=== PATIENT | female | born 1965 | race Caucasian/White ===

== ENCOUNTER 2016-10-07 19:38 | Inpatient (IN) | payer MEDICAID, OTHER ==
[~2016-10-07] VITALS: Ht 165.1 cm; Wt 83.3 kg
[~2016-10-07 19:38] MED LIST: Z.0.NO CURRENT MEDS
[2016-10-07 20:02] VITALS: BP 112/65; PULSE 107; RESP 16; TEMP 98.2; O2SAT 93
--- NOTE | 2016-10-07 20:20 | PD ---
HPI Chief Complaint: Complaint Time Seen by Provider: 20:20 Travel History International Travel<30 days: No Contact w/Intl Traveler<30days: No Traveled to known affect area: No History of Present Illness HPI 51-year-old female with a history of COPD is brought to the emergency department by EMS for evaluation of weakness. The patient states that she got into an argument with her son who was asking her for money and he called EMS. States that she was feeling weak in her knees worse on the right than the left. Denies any falls, denies any head trauma or loss of consciousness. Denies any specific injury or trauma to her knees. States she has had problems with her knees for years. She denies any fever, chills, nausea, vomiting, lightheadedness, dizziness, headache, chest pain, shortness breath, abdominal pain, numbness or tingling. She admits to drinking alcohol daily to try to control her chronic back pain, states that she used to take Suboxone but does not take this anymore. She also admits to taking clonazepam for anxiety, states she took four 2 mg tablets of clonazepam today, 2 this morning and 2 this afternoon. She denies any suicidal ideations or thoughts of hurting herself. Denies any ingestion of pills or substances in an attempt to harm herself. No other complaints. PFSH Past Medical History Anxiety: Yes COPD: Yes Diminished Hearing: No Hypertension: Yes Medical other: Yes (PANIC ATTACKS) Respiratory: Yes (COPD) Seizures: Yes Tetanus Vaccination: > 5 Years Influenza Vaccination: No ?: Not Past Surgical History Section: Yes (X1) Gynecologic Surgery: Yes (TL) Hysterectomy: Yes (PARTIAL) Other Surgery: Yes (TUMOR REMOVED FROM BACK) Social History Alcohol Use: Yes (DAILY) Tobacco Use: Yes (1/2 PPD) Substance Use: No Allergies-Medications (Allergen,Severity, Reaction): Coded Allergies: No Known Allergies (Verified , 05/09/06) Reported Meds & Prescriptions Reported Meds & Active Scripts Active Reported No Current Meds (Miscellaneous Medication) Misc Review of Systems Except as stated in HPI: all other systems reviewed are Neg Physical Exam Narrative GENERAL: Well-nourished and well-developed female patient in no acute distress. SKIN: Warm and dry. HEAD: Normocephalic and atraumatic. EYES: No injection, drainage, or hyphema noted. PERRLA. EOMI. ENT: No nasal drainage noted. Oropharynx is clear. NECK: Supple and the trachea is midline. CARDIOVASCULAR: Regular rate and rhythm. RESPIRATORY: Breath sounds are equal bilaterally with no accessory muscle use, wheezing, rhonchi, or crackles. GASTROINTESTINAL: Abdomen is soft, non-tender, and nondistended. MUSCULOSKELETAL: No obvious deformities, swelling, cyanosis, or ecchymosis is present throughout the upper and lower extremities. Patient has full range of motion without any signs of neurovascular compromise. Strength 5/5 upper and lower extremities and equal bilaterally. NEUROLOGICAL: Awake, alert, and oriented. Drowsy but awake and conversing normally. Normal speech and gait. Cranial nerves are grossly intact. Data Data Last Documented VS Vital Signs Date Time Temp Pulse Resp B/P Pulse Ox O2 Delivery O2 Flow Rate FiO2 10/07/16 22:58 110 16 109/67 94 Nasal Cannula 2 10/07/16 21:15 98.1 Orders Alcohol (Ethanol) (10/07/16 20:11) Complete Blood Count With Diff (10/07/16 20:11) Comprehensive Metabolic Panel (10/07/16 20:11) Drug Screen, Random Urine (10/07/16 20:11) Urinalysis - C+S If Indicated (10/07/16 20:11) Ct Brain W/O Iv Contrast(Rout) (10/07/16 20:11) Sodium Chlor 0.9% 1000 Ml Inj (Ns 1000 M (10/07/16 20:26) Sodium Chlor 0.9% 1000 Ml Inj (Ns 1000 M (10/07/16 20:26) Electrocardiogram (10/07/16 ) Urine Culture (10/07/16 20:20) Ceftriaxone Inj (Rocephin Inj) (10/07/16 21:00) Arterial Blood Gas (Abg) (10/07/16 ) Naloxone Inj (Narcan Inj) (10/07/16 21:30) Sodium Chlor 0.9% 1000 Ml Inj (Ns 1000 M (10/07/16 21:22) Naloxone Inj (Narcan Inj) (10/07/16 21:45) Ammonia (10/07/16 22:03) Salicylates (Aspirin) (10/07/16 22:03) Tylenol (Acetaminophen) (10/07/16 22:03) Ondansetron Inj (Zofran Inj) (10/07/16 22:30) Labs Laboratory Tests Test 10/07/16 10/07/16 10/07/16 20:11 20:20 21:28 Urine Opiates Screen NEG Urine Barbiturates Screen NEG Urine Amphetamines Screen NEG Urine Benzodiazepines Screen POS Urine Cocaine Screen NEG Urine Cannabinoids Screen NEG White Blood Count 14.8 TH/MM3 Red Blood Count 3.95 MIL/MM3 Hemoglobin 11.8 GM/DL Hematocrit 34.7 % Mean Corpuscular Volume 87.9 FL Mean Corpuscular Hemoglobin 29.9 PG Mean Corpuscular Hemoglobin 34.0 % Concent Red Cell Distribution Width 14.5 % Platelet Count 231 TH/MM3 Mean Platelet Volume 9.9 FL Neutrophils (%) (Auto) 83.6 % Lymphocytes (%) (Auto) 9.2 % Monocytes (%) (Auto) 5.8 % Eosinophils (%) (Auto) 0.9 % Basophils (%) (Auto) 0.5 % Neutrophils # (Auto) 12.3 TH/MM3 Lymphocytes # (Auto) 1.4 TH/MM3 Monocytes # (Auto) 0.9 TH/MM3 Eosinophils # (Auto) 0.1 TH/MM3 Basophils # (Auto) 0.1 TH/MM3 CBC Comment DIFF FINAL Differential Comment Urine Color YELLOW Urine Turbidity HAZY Urine pH 6.0 Urine Specific [place] 1.027 Urine Protein 30 mg/dL Urine Glucose (UA) NEG mg/dL Urine Ketones NEG mg/dL Urine Occult Blood MOD Urine Nitrite POS Urine Bilirubin NEG Urine Urobilinogen LESS THAN 2.0 MG/DL Urine Leukocyte Esterase SMALL Urine RBC 2 /hpf Urine WBC 20 /hpf Urine Bacteria MOD /hpf Urine Hyaline Casts 1 /lpf Urine Mucus FEW /lpf Microscopic Urinalysis Comment CATH-CULTURE IND Sodium Level 141 MEQ/L Potassium Level 3.4 MEQ/L Chloride Level 108 MEQ/L Carbon Dioxide Level 23.3 MEQ/L Anion Gap 10 MEQ/L Blood Urea Nitrogen 23 MG/DL Creatinine 0.93 MG/DL Estimat Glomerular Filtration 63 ML/MIN Rate Random Glucose 106 MG/DL Calcium Level 8.7 MG/DL Total Bilirubin 0.6 MG/DL Aspartate Amino Transf 99 U/L (AST/SGOT) Alanine Aminotransferase 133 U/L (ALT/SGPT) Alkaline Phosphatase 123 U/L Total Protein 7.7 GM/DL Albumin 4.0 GM/DL Ethyl Alcohol Level LESS THAN 3 MG/DL Blood Gas Puncture Site RT RADIAL Blood Gas Patient Temperature 98.6 Blood Gas HCO3 21 mmol/L Blood Gas Base Excess -6.1 mmol/L Blood Gas Oxygen Saturation 80 % Arterial Blood pH 7.20 Arterial Blood Partial 55 mmHg Pressure CO2 Arterial Blood Partial 54 mmHg Pressure O2 Arterial Blood Oxygen Content 11.7 Vol % Arterial Blood 1.2 % Carboxyhemoglobin Arterial Blood Methemoglobin 1.1 % Blood Gas Hemoglobin 10.4 G/DL Oxygen Delivery Device RA Blood Gas Inspired Oxygen 21 % MDM Medical Decision Making Medical Screen Exam Complete: Yes Emergency Medical Condition: Yes Differential Diagnosis Substance abuse versus alcohol intoxication versus UTI versus dehydration versus mood disorder Narrative Course 51-year-old female presents to the emergency department by EMS for evaluation of weakness. Patient is afebrile, vital signs are stable. She is slightly tachycardic with a heart rate of 105 bpm. Physical examination is essentially unremarkable, no focal neurologic deficits. The patient is somewhat drowsy and admits to taking 4 tablets of clonazepam today. States that she took a shot of alcohol today. IV access is obtained, labs are drawn and sent. CBC shows an elevated white blood cell count of 14.8. CMP shows elevated LFTs, no recent for comparison are facility. Urine tox positive for benzos. EtOH is less than 3. Urinalysis shows 30 protein, moderate occult blood, positive nitrites, small leukocyte esterase, 20 white blood cells, moderate bacteria and few mucus. This consistent with urinary tract infection. Patient is given Rocephin 1 g IV. Patient is reassessed and noted to be more lethargic and difficult to arouse. She is able to be aroused by speaking loudly and shaking her but stays awake for only a few seconds. I suspect substance abuse. Patient is given Narcan 2 mg IV. Patient did respond to the Narcan and is more awake however is still drowsy. The patient does have an elevated white blood cell count, she is tachycardic and has a source of infection with her urine. She does meet sepsis criteria. She has been given Rocephin 1 g and 3 L of fluid. She'll be admitted to medicine service for antibiotics and fluids. I discussed the case with my attending physician Dr. Ricks who is aware of the patients history, physical examination findings, and treatment plan. Physician Communication Physician Communication I spoke with Dr. Puente Piter who agrees to admit the patient to her service. Diagnosis Primary Impression: Sepsis Qualified Code: A41.9 - Sepsis, due to unspecified organism Additional Impressions: Urinary tract infection Qualified Code: N39.0 - Urinary tract infection with hematuria, site unspecified Substance abuse Admitting Information Admitting Physician Requests: Admit Perlita Smith Oct 07, 2016 20:20
[2016-10-07] MEDS ORDERED: SODIUM CHLOR 0.9% 1000 ML INJ 1,000 ML IV SCH ×4 (20:26→23:27)
--- NOTE | 2016-10-07 20:40 | RADRPT ---
EXAM DATE/TIME: 10/07/2016 20:30 [facility] COMPARISON: No previous studies available for comparison. INDICATIONS : Bilateral lower extremity weakness. RADIATION DOSE: 39.06 CTDIvol (mGy) MEDICAL HISTORY : Seizures. SURGICAL HISTORY : None. ENCOUNTER: Initial ACUITY: 1 day PAIN SCALE: 0/10 LOCATION: cranial TECHNIQUE: Multiple contiguous axial images were obtained of the head. Using automated exposure control and adj ustment of the mA and/or kV according to patient size, radiation dose was kept as low as reasonably a chievable to obtain optimal diagnostic quality images. FINDINGS: CEREBRUM: The ventricles are normal for age. No evidence of midline shift, mass lesion, hemorrhage or acute in farction. No extra-axial fluid collections are seen. POSTERIOR FOSSA: The cerebellum and brainstem are intact. The 4th ventricle is midline. The cerebellopontine angle i s unremarkable. EXTRACRANIAL: The visualized portion of the orbits is intact. SKULL: The calvaria is intact. No evidence of skull fracture. CONCLUSION: No acute intracranial disease. Thomas Robertson MD on October 07, 2016 at 20:37 Board Certified Radiologist. This report was verified electronically.
[2016-10-07 20:44] LABS: AUTOMATED NEUTROPHIL # 12.3 TH/MM3 (1.8-7.7); BASOPHIL # 0.1 TH/MM3 (0-0.2); BASOPHIL % 0.5 % (0.0-2.0); EOSINOPHIL # 0.1 TH/MM3 (0-0.4); EOSINOPHIL % 0.9 % (0.0-4.0); HEMATOCRIT 34.7 % (35.0-46.0); HEMO FLAGS DIFF FINAL; LYMPH % 9.2 % (9.0-44.0); LYMPHOCYTE # 1.4 TH/MM3 (1.0-4.8); MEAN CELL VOLUME 87.9 FL (80.0-100.0); MEAN CORPUSCULAR HEMOGLOBIN 29.9 PG (27.0-34.0); MONO % 5.8 % (0.0-8.0); NEUT % 83.6 % (16.0-70.0); PLATELET COUNT 231 TH/MM3 (150-450); RED BLOOD COUNT 3.95 MIL/MM3 (4.00-5.30); RED CELL DISTRIBUTION WIDTH 14.5 % (11.6-17.2); WHITE BLOOD COUNT 14.8 TH/MM3 (4.0-11.0)
[2016-10-07 20:45] LABS: BACTERIA, URINE MOD /hpf; BLOOD, URINE MOD (NEG); GLUCOSE,URINE NEG (NEG); HYALINE CAST, URINE 1 /lpf (RARE); KETONE, URINE NEG (NEG); MUCUS URINE FEW /lpf (OCC); URINE COLOR YELLOW (YELLW/STRAW)
[2016-10-07 20:46] LABS: COMMENT (UR) CATH-CULTURE IND; CULTURE IF INDICATED CATH CULTURE IND; NITRITE,URINE POS (NEG)
[2016-10-07 20:56] LABS: AMPHETAMINE, URINE NEG (NEG); BARBITURATES, URINE NEG (NEG); COCAINE, URINE NEG (NEG)
[2016-10-07] MEDS ORDERED: cefTRIAXone INJ 1,000 MG in SODIUM CHLORIDE 0.9% INJ 100 ML IV ONE (21:00)
[2016-10-07 21:14] LABS: ALKALINE PHOSPHATASE 123 U/L (45-117); ALT (GPT) 133 U/L (10-53); ANION GAP 10 MEQ/L (5-15); AST (GOT) 99 U/L (15-37); BICARBONATE 23.3 MEQ/L (21.0-32.0); BLOOD UREA NITROGEN 23 MG/DL (7-18); CHLORIDE 108 MEQ/L (98-107); GLOMERULAR FILTRATION RATE 63 ML/MIN (>89); POTASSIUM 3.4 MEQ/L (3.5-5.1); SODIUM (NA) 141 MEQ/L (136-145); TOTAL BILIRUBIN ADULT 0.6 MG/DL (0.2-1.0)
[2016-10-07 21:15] VITALS: BP 109/67; PULSE 105; RESP 19; TEMP 98.1; O2SAT 98
[2016-10-07] MEDS ORDERED: NALOXONE HCL 0.4 MG/ML AMP IV PUSH ONE (21:30)
[2016-10-07 21:44] LABS: BLOOD GAS BASE EXCESS -6.1 mmol/L (-2-2); BLOOD GAS CARBOXYHEMOGLOBIN 1.2 % (0-4); BLOOD GAS HCO3 21 mmol/L (22-26); BLOOD GAS METHEMOGLOBIN 1.1 % (0-2); BLOOD GAS O2 HGB SATURATION 80 % (90-100); BLOOD GAS OXYGEN CONTENT 11.7 Vol % (12.0-20.0); BLOOD GAS PCO2 55 mmHg (38-42); BLOOD GAS PO2 54 mmHg (61-120); BLOOD GAS TOTAL HGB 10.4 G/DL (12.0-16.0); CRITICAL VALUE YES; DRAW SITE RT RADIAL; FIO2 21 %; NUMBER OF ARTERIAL PUNCTURES 1; OXYGEN DEVICE RA; TEMP CORR TO 98.6
[2016-10-07 21:45] LABS: STAT YES; ULNAR PULSE PRESENT
[2016-10-07] MEDS ORDERED: NALOXONE HCL 2 MG/2 ML VIAL IV PUSH ONE (21:45)
[2016-10-07] MEDS ORDERED: ONDANSETRON HCL 4 MG/2 ML VIAL IV PUSH ONE (22:30)
[2016-10-07 22:58] VITALS: BP 109/67; PULSE 106; PULSE 110; RESP 16; RESP 20; O2SAT 94
--- NOTE | 2016-10-07 23:18 | HHI.HP ---
[facility] Service [facility] Primary Care Physician Unknown Admission Diagnosis Diagnoses: Chief Complaint: weakness Travel History International Travel<30 Days: No Contact w/Intl Traveler <30 Da: No Traveled to Known Affected Are: No History of Present Illness 51-year-old female with a history of COPD is brought to the emergency department by EMS for evaluation of weakness. The patient states that she got into an argument with her son who was asking her for money and he called EMS. States that she was feeling weak in her knees worse on the right than the left. Denies any falls, denies any head trauma or loss of consciousness. Denies any specific injury or trauma to her knees. States she has had problems with her knees for years. She denies any fever, chills, nausea, vomiting, lightheadedness, dizziness, headache, chest pain, shortness breath, abdominal pain, numbness or tingling. She admits to drinking alcohol daily to try to control her chronic back pain, states that she used to take Suboxone but does not take this anymore. She also admits to taking clonazepam for anxiety, states she took four of 2 mg tablets of clonazepam today, 2 this morning and 2 this afternoon. She denies any suicidal ideations or thoughts of hurting herself. Denies any ingestion of pills or substances in an attempt to harm herself. No other complaints. She also complaints of suprapubic pain, dysuria, chills. Denies fevers. Says she also vomited 2x NBNB, and felt nauseated. Review of Systems ROS Limitations: Clinical Condition, Poor Historian Constitutional: DENIES: Fever, Chills, Change in appetite Endocrine: DENIES: Heat/cold intolerance Eyes: DENIES: Blurred vision, Eye pain Ears, nose, mouth, throat: DENIES: Tinnitus, Hearing loss, Vertigo, Nasal discharge, Oral lesions, Throat pain, Hoarseness, Ear Pain, Running Nose, Epistaxis, Sinus Pain, Toothache, Odynophagia Cardiovascular: DENIES: Chest pain, Palpitations, Syncope, Dyspnea on Exertion , PND, Lower Extremity Edema, Orthopnea, Claudication Gastrointestinal: COMPLAINS OF: Abdominal pain, Nausea, Vomiting, DENIES: Black stools, Bloody stools, Constipation, Diarrhea, Difficulty Swallowing, Anorexia Genitourinary: COMPLAINS OF: Urinary frequency, Urgency, Dysuria, DENIES: Abnormal vaginal bleeding, Dysmenorrhea, Dyspareunia, Sexual dysfunction, Urinary incontinence, Hematuria, Nocturia, Vaginal discharge Musculoskeletal: COMPLAINS OF: Joint pain Integumentary: DENIES: Rash Neurologic: DENIES: Abnormal gait, Headache, Localized weakness, Paresthesias, Seizures, Speech Problems, Tremor, Poor Balance Psychiatric: COMPLAINS OF: Anxiety Past Family Social History Allergies: Coded Allergies: No Known Allergies (Verified , 05/09/06) Physical Exam Vital Signs Vital Signs Date Time Temp Pulse Resp B/P Pulse Ox O2 Delivery O2 Flow Rate FiO2 10/07/16 22:58 110 16 109/67 94 Nasal Cannula 2 10/07/16 22:58 106 20 109/67 94 Nasal Cannula 2 10/07/16 21:15 98.1 105 19 109/67 98 Nasal Cannula 2 10/07/16 20:30 95 Nasal Cannula 2 10/07/16 20:11 100 18 10/07/16 20:02 98.2 107 16 112/65 93 Physical Exam GENERAL: This is a well-nourished, well-developed patient, in no apparent distress. SKIN: No rashes, ecchymoses or lesions. Cool and dry. HEAD: Atraumatic. Normocephalic. No temporal or scalp tenderness. EYES: Pupils equal round and reactive. Extraocular motions intact. No scleral icterus. No injection or drainage. ENT: Nose without bleeding, purulent drainage or septal hematoma. Throat without erythema, tonsillar hypertrophy or exudate. Uvula midline. Airway patent. NECK: Trachea midline. No JVD or lymphadenopathy. Supple, nontender, no meningeal signs. CARDIOVASCULAR: Regular rate and rhythm without murmurs, gallops, or rubs. RESPIRATORY: Clear to auscultation. Breath sounds equal bilaterally. No wheezes , rales, or rhonchi. GASTROINTESTINAL: Abdomen soft, non-tender, nondistended. No hepato-splenomegaly , or palpable masses. No guarding. MUSCULOSKELETAL: Extremities without clubbing, cyanosis, or edema. No joint tenderness, effusion, or edema noted. No calf tenderness. Negative Homans sign bilaterally. NEUROLOGICAL: Awake and alert. Cranial nerves II through XII intact. Motor and sensory grossly within normal limits. Five out of 5 muscle strength in all muscle groups. Normal speech. Laboratory Laboratory Tests Test 10/07/16 10/07/16 10/07/16 20:11 20:20 21:28 Urine Opiates Screen NEG Urine Barbiturates Screen NEG Urine Amphetamines Screen NEG Urine Benzodiazepines Screen POS Urine Cocaine Screen NEG Urine Cannabinoids Screen NEG White Blood Count 14.8 Red Blood Count 3.95 Hemoglobin 11.8 Hematocrit 34.7 Mean Corpuscular Volume 87.9 Mean Corpuscular Hemoglobin 29.9 Mean Corpuscular Hemoglobin 34.0 Concent Red Cell Distribution Width 14.5 Platelet Count 231 Mean Platelet Volume 9.9 Neutrophils (%) (Auto) 83.6 Lymphocytes (%) (Auto) 9.2 Monocytes (%) (Auto) 5.8 Eosinophils (%) (Auto) 0.9 Basophils (%) (Auto) 0.5 Neutrophils # (Auto) 12.3 Lymphocytes # (Auto) 1.4 Monocytes # (Auto) 0.9 Eosinophils # (Auto) 0.1 Basophils # (Auto) 0.1 CBC Comment DIFF FINAL Differential Comment Urine Color YELLOW Urine Turbidity HAZY Urine pH 6.0 Urine Specific [place] 1.027 Urine Protein 30 Urine Glucose (UA) NEG Urine Ketones NEG Urine Occult Blood MOD Urine Nitrite POS Urine Bilirubin NEG Urine Urobilinogen LESS THAN 2.0 Urine Leukocyte Esterase SMALL Urine RBC 2 Urine WBC 20 Urine Bacteria MOD Urine Hyaline Casts 1 Urine Mucus FEW Microscopic Urinalysis Comment CATH-CULTURE IND Sodium Level 141 Potassium Level 3.4 Chloride Level 108 Carbon Dioxide Level 23.3 Anion Gap 10 Blood Urea Nitrogen 23 Creatinine 0.93 Estimat Glomerular Filtration 63 Rate Random Glucose 106 Calcium Level 8.7 Total Bilirubin 0.6 Aspartate Amino Transf 99 (AST/SGOT) Alanine Aminotransferase 133 (ALT/SGPT) Alkaline Phosphatase 123 Total Protein 7.7 Albumin 4.0 Ethyl Alcohol Level LESS THAN 3 Blood Gas Puncture Site RT RADIAL Blood Gas Patient Temperature 98.6 Blood Gas HCO3 21 Blood Gas Base Excess -6.1 Blood Gas Oxygen Saturation 80 Arterial Blood pH 7.20 Arterial Blood Partial 55 Pressure CO2 Arterial Blood Partial 54 Pressure O2 Arterial Blood Oxygen Content 11.7 Arterial Blood 1.2 Carboxyhemoglobin Arterial Blood Methemoglobin 1.1 Blood Gas Hemoglobin 10.4 Oxygen Delivery Device RA Blood Gas Inspired Oxygen 21 Date/Time Procedure Status Source Growth 10/07/16 20:20 Urine Culture Received Urine Clean Catch Pending Result Diagram: 10/07/16201910/07/162019 Assessment and Plan Assessment and Plan Sepsis leukocytosis, tachycardia, UTI on admission Transaminitis, check Hep panel Nausea/vomiting Encephalopathy multifactorial OD with clonazepam, sepsis /UTI, elevated ammonia Overdose with clonazepam took 4 pills. Received narcan in ED. Hold BZa. Monitor VS. Chronic medical problems at baseline restart home meds Start rocephine IV Check Ucx Monitor VS. O2 supplement by NC keep sat > 92% Give narcan if need if low RR /hypoxia Monitor on tele Check LA Urine tox + for BZs Lactulose titrate for 3-4 BM daily DVT ppx lovenox/SCD/TEds Code Status full Discussed Condition With pt, nurse, ED physician Physician Certification 2 Midnight Certification Type: Admission for Inpatient Services Order for Inpatient Services The services are ordered in accordance with Medicare regulations or non- Medicare payer requirements, as applicable. In the case of services not specified as inpatient-only, they are appropriately provided as inpatient services in accordance with the 2-midnight benchmark. Estimated LOS (days): 3 days is the estimated time the patient will need to remain in the hospital, assuming treatment plan goals are met and no additional complications. Post-Hospital Plan: Home Rayna Puente MD Oct 07, 2016 23:18
[2016-10-07] MEDS ORDERED: BISACODYL 10 MG SUPP PR PRN ×2 (23:30)
[2016-10-07] MEDS ORDERED: ACETAMINOPHEN 325 MG TAB PO PRN ×2 (23:30)
[2016-10-07] MEDS ORDERED: MAGNESIUM HYDROXIDE SUSP 30 ML CUP PO PRN ×2 (23:30)
[2016-10-07] MEDS ORDERED: ONDANSETRON HCL 4 MG/2 ML VIAL IVP PRN ×2 (23:30)
[2016-10-07] MEDS ORDERED: SODIUM CHLORIDE 0.9% FLUSH 5 ML FLUSH FLUSH PRN ×2 (23:30)
[2016-10-07] MEDS ORDERED: PROCHLORPERAZINE 25 MG SUPP PR PRN ×2 (23:30)
[2016-10-07] MEDS ORDERED: TEMAZEPAM 15 MG CAP PO PRN (23:30)
[2016-10-07] MEDS ORDERED: SENNOSIDES 8.6 MG TAB PO PRN ×2 (23:30)
[2016-10-08] VITALS (10 sets, daily range): BP systolic 100–123; BP diastolic 62–76; PULSE 102–127; RESP 14–24; TEMP 97.6–99.3; O2SAT 81–98
[2016-10-08] MEDS: ENOXAPARIN SODIUM 40 MG/0.4 ML SYRINGE SQ SCH (00:33)
[2016-10-08] MEDS: SODIUM CHLOR 0.9% 1000 ML INJ 1,000 ML IV SCH ×3 (00:33→20:18)
[2016-10-08] MEDS ORDERED: OMEP20TA PO (00:37)
[2016-10-08] MEDS ORDERED: SERO300T PO (00:37)
[2016-10-08] MEDS ORDERED: CLON2TAB PO (00:37)
[2016-10-08] MEDS ORDERED: LORazepam 2 MG/ML VIAL IV PUSH PRN ×4 (00:45)
[2016-10-08] MEDS ORDERED: SODIUM CHLORIDE 0.9% FLUSH 5 ML FLUSH IV FLUSH PRN (00:45)
[2016-10-08] MEDS ORDERED: LORazepam 2 MG TAB PO PRN (00:45)
[2016-10-08] MEDS ORDERED: cloNIDine HCL 0.1 MG TAB PO PRN (00:45)
[2016-10-08] MEDS ORDERED: FLUMAZENIL 1 MG/10 ML VIAL IV PUSH PRN (00:45)
[2016-10-08] MEDS ORDERED: LORazepam 1 MG TAB PO PRN (00:45)
[2016-10-08 02:06] LABS: MAGNESIUM 1.6 MG/DL (1.5-2.5)
[2016-10-08 06:13] LABS: AUTOMATED NEUTROPHIL # 9.3 TH/MM3 (1.8-7.7); BASOPHIL # 0.1 TH/MM3 (0-0.2); BASOPHIL % 0.6 % (0.0-2.0); EOSINOPHIL # 0.3 TH/MM3 (0-0.4); EOSINOPHIL % 2.3 % (0.0-4.0); HEMO FLAGS DIFF FINAL; LYMPH % 12.2 % (9.0-44.0); LYMPHOCYTE # 1.4 TH/MM3 (1.0-4.8); MEAN CELL VOLUME 90.4 FL (80.0-100.0); MEAN CORPUSCULAR HEMOGLOBIN 29.5 PG (27.0-34.0); MEAN CORPUSCULAR HGB CONC 32.6 % (32.0-36.0); MONO % 6.6 % (0.0-8.0); NEUT % 78.3 % (16.0-70.0); PLATELET COUNT 199 TH/MM3 (150-450); RED BLOOD COUNT 3.65 MIL/MM3 (4.00-5.30); WHITE BLOOD COUNT 11.9 TH/MM3 (4.0-11.0)
[2016-10-08] MEDS ORDERED: POTASSIUM CHLORIDE 10 MEQ CONTROLLED RELEASE TAB PO ONE (06:45)
[2016-10-08 07:08] LABS: ALKALINE PHOSPHATASE 89 U/L (45-117); ALT (GPT) 106 U/L (10-53); ANION GAP 9 MEQ/L (5-15); AST (GOT) 71 U/L (15-37); BICARBONATE 20.1 MEQ/L (21.0-32.0); BLOOD UREA NITROGEN 17 MG/DL (7-18); CHLORIDE 115 MEQ/L (98-107); GLOMERULAR FILTRATION RATE 103 ML/MIN (>89); POTASSIUM 3.7 MEQ/L (3.5-5.1); SODIUM (NA) 144 MEQ/L (136-145); TOTAL BILIRUBIN ADULT 0.4 MG/DL (0.2-1.0)
--- NOTE | 2016-10-08 07:47 | RADRPT ---
EXAM DATE/TIME: 10/08/2016 07:46 [facility] COMPARISON: No previous studies available for comparison. INDICATIONS : Left knee pain, denies injury MEDICAL HISTORY : None. SURGICAL HISTORY : None. ENCOUNTER: Initial ACUITY: 2 days PAIN SCORE: 8/10 LOCATION: Left knee FINDINGS: Four view examination of the left knee demonstrates no evidence of fracture or dislocation. Bony min eralization is normal. The articular surfaces are intact. The suprapatellar soft tissues have a nor mal configuration. CONCLUSION: Unremarkable examination of the left knee. Zechariah Marlow MD on October 08, 2016 at 7:45 Board Certified Radiologist. This report was verified electronically.
--- NOTE | 2016-10-08 07:48 | RADRPT ---
EXAM DATE/TIME: 10/08/2016 07:49 [facility] COMPARISON: No previous studies available for comparison. INDICATIONS : Right knee pain and abrasion, fell MEDICAL HISTORY : None. SURGICAL HISTORY : None. ENCOUNTER: Initial ACUITY: 2 days PAIN SCORE: 10/10 LOCATION: Right Knee FINDINGS: Four view examination of the right knee demonstrates no evidence of fracture or dislocation. Bony mi neralization is normal. The articular surfaces are intact. The suprapatellar soft tissues have a no rmal configuration. CONCLUSION: Unremarkable examination of the right knee except there may be a small effusion present. Zechariah Marlow MD on October 08, 2016 at 7:46 Board Certified Radiologist. This report was verified electronically.
--- NOTE | 2016-10-08 08:13 | EKG ---
Date Performed: 10/07/2016 Time Performed: 21:39:48 PTAGE: 51 years EKG: SINUS TACHYCARDIA NONSPECIFIC T-WAVE ABNORMALITY ABNORMAL RHYTHM ECG COMPARED TO PRIOR ELEC TROCARDIOGRAM, Rate has increased and nonspecific T wave changes are slightly more marked. PREVIOUS TRACING : 03/06/2006 15.47 DOCTOR: Duong Joya Interpretating Date/Time 10/08/2016 08:12:35
[2016-10-08] MEDS: FAMOTIDINE 20 MG TAB PO SCH ×2 (08:17→20:18)
[2016-10-08] MEDS: LACTULOSE SYRUP 20 GM/30 ML CUP PO SCH ×4 (08:17→20:18)
--- NOTE | 2016-10-08 08:28 | HHI.PR ---
Subjective Remarks Patient seen in follow-up for sepsis secondary to UTI, benzodiazepine overdose, and encephalopathy. She is still drowsy and unaware of the events leading to her hospitalization. She complained of bilateral knee pain. No nausea or vomiting. Objective Vitals Vital Signs Date Time Temp Pulse Resp B/P Pulse Ox O2 Delivery O2 Flow Rate FiO2 10/08/16 07:20 96 Nasal Cannula 3 10/08/16 07:20 102 20 10/08/16 07:20 98.5 102 20 100/62 96 Nasal Cannula 3 10/08/16 06:19 121 22 110/68 94 Nasal Cannula 10/07/16 22:58 110 16 109/67 94 Nasal Cannula 2 10/07/16 22:58 106 20 109/67 94 Nasal Cannula 2 10/07/16 21:15 98.1 105 19 109/67 98 Nasal Cannula 2 10/07/16 20:30 95 Nasal Cannula 2 10/07/16 20:11 100 18 10/07/16 20:02 98.2 107 16 112/65 93 Result Diagram: 10/08/1651910/08/16519 Objective Remarks GENERAL: Obese female in no apparent distress. CARDIOVASCULAR: Normal rate and regular rhythm without murmurs, gallops, or rubs. RESPIRATORY: Good respiratory efforts. Breath sounds equal and clear to auscultation bilaterally. GASTROINTESTINAL: Abdomen soft, non-tender, non-distended. Normal active bowel sounds MUSCULOSKELETAL: Bilateral knees tender to palpation in the anterior compartment. The right knee has an abrasion. Mild effusion on the right knee. NEURO: Awake but drowsy. Slow speech PSYCH: Calm A/P Assessment and Plan 51-year-old female admitted with Sepsis secondary to UTI: - Continue Rocephin, IV fluid and supportive care. - Follow urine cultures Encephalopathy secondary to benzodiazepine overdose and alcohol abuse: - Patient reports that she drank alcohol for chronic pain. Apparently took 4 Klonopin prior to arrival. She is still drowsy. - Continue supportive care. Avoid sedating medications. - [facility] protocol Bilateral knee pain likely secondary to previous fall - Bilateral knee x-ray images reviewed. Left knee x-ray unremarkable. Right knee with a mild effusion. No fracture is identified. - Continue supportive care and pain control. PT when able. GI prophylaxis: Pepcid. Stool softener PRN constipation. DVT PPx: LoveZaki Buitrago MD Oct 08, 2016 08:28
[2016-10-08] MEDS ORDERED: ACETAMINOPHEN/HYDROcodone 325 MG/5 MG TAB PO PRN (08:45)
[2016-10-08] MEDS ORDERED: THIAMINE HCL 100 MG TAB PO SCH (09:00)
[2016-10-08] MEDS ORDERED: SODIUM CHLORIDE 0.9% FLUSH 5 ML FLUSH IV FLUSH SCH (09:00)
[2016-10-08] MEDS ORDERED: SODIUM CHLORIDE 0.9% FLUSH 5 ML FLUSH FLUSH SCH ×2 (09:00)
[2016-10-08] MEDS ORDERED: FOLIC ACID 1 MG TAB PO SCH (09:00)
--- NOTE | 2016-10-08 16:28 | RADRPT ---
EXAM DATE/TIME: 10/08/2016 16:09 [facility] COMPARISON: No previous studies available for comparison. INDICATIONS : Shortness of breath. MEDICAL HISTORY : None. SURGICAL HISTORY : None. ENCOUNTER: Initial ACUITY: 1 day PAIN SCORE: 0/10 LOCATION: Bilateral chest FINDINGS: A single view of the chest demonstrates the lungs to be symmetrically aerated without evidence of mas s, infiltrate or effusion. Minimal basilar atelectasis. The cardiomediastinal contours are unremarkab le. Osseous structures are intact with multiple screws proximal left humerus. CONCLUSION: 1. Minimal basal atelectasis. No effusion or pneumothorax. Healing left rib fracture. José Miguel Lopez MD on October 08, 2016 at 16:25 Board Certified Radiologist. This report was verified electronically.
[2016-10-08] MEDS: RESP: ALBUTEROL 2.5 MG/IPRATROPIUM 0.5 MG NEB (SCH) NEB ×2 (17:31→23:14)
[2016-10-08] MEDS: cefTRIAXone INJ 1,000 MG in SODIUM CHLORIDE 0.9% INJ 100 ML IV SCH (22:36)
--- NOTE | 2016-10-08 23:28 | HHI.PR ---
Addendum to Inpatient Note Addendum Reason: Additional Documentation Additional Information I am page by the nurse. Patient is dessating at 70 on 6L NC , patient is placed on NRM and venti mask still desattign in upper 80s. Patient is in restraints with EtOH withdrawals. She appears tacypneic and she is tachycardic. + wheezing , better after nebs. Will order CXR stat. Order CBC, BMP, LA stat. Patient is not able to answer any questions meaningfully she is fighting off the mask. GENERAL: Obese female in respiratory distress CARDIOVASCULAR: Tachycardia 120s.Regular rhythm without murmurs, gallops, or rubs. RESPIRATORY: Decreased breath sounds. Mild scattered wheezing. No rhonchi. GASTROINTESTINAL: Abdomen soft, obese, non-tender, non-distended. Normal active bowel sounds MUSCULOSKELETAL: Bilateral knees tender to palpation in the anterior compartment. The right knee has an abrasion. Mild effusion on the right knee. NEURO: Awake, disoriented, agitated. + tremors. PSYCH: Agitated, fighting the O 2 mask. Last Impressions Knee X-Ray 10/08/16 0000 Signed Impressions: Service Date/Time: October 07:49 - CONCLUSION: Unremarkable examination of the right knee except there may be a small effusion present. Zechariah Marlow MD Chest X-Ray 10/08/16 Signed Impressions: Service Date/Time: October 23:39 - CONCLUSION: The lungs are clear. Ham Irizarry MD Head CT 10/07/162010 Signed Impressions: Service Date/Time: Friday, October 07, 2016 20:30 - CONCLUSION: No acute intracranial disease. Thomas Robertson MD Assessment and Plan 51-year-old female admitted with Acute respiratory failure, dessating at 70s on 6 l NC , placed on NRM still desattign in upper 80s. ABG stat reviewed, with respiratory acidosis. Transfer patient to the unit due to acute respiratory failure and place on BiPAP repeat ABG in the morning. Will consider composite science teacher on consult if no improvement. Add nebs. CXR stat with atelectasis. Sepsis secondary to UTI: - Continue Rocephin, IV fluid and supportive care. - Follow urine cultures Encephalopathy secondary to benzodiazepine overdose and alcohol abuse with withdrawals: - Patient reports that she drank alcohol for chronic pain. Apparently took 4 Klonopin prior to arrival. She is still drowsy on off and also noted agitated on/off. - Continue supportive care. Avoid sedating medications. - [facility] protocol Bilateral knee pain likely secondary to previous fall - Bilateral knee x-ray images reviewed. Left knee x-ray unremarkable. Right knee with a mild effusion. No fracture is identified. - Continue supportive care and pain control. PT when able. GI prophylaxis: Pepcid. Stool softener PRN constipation. DVT PPx: Lovenox Critical time spent 35 min Discussed with the patient, nurse. Rayna Puente MD Oct 08, 2016 23:28
--- NOTE | 2016-10-08 23:42 | RADRPT ---
EXAM DATE/TIME: 10/08/2016 23:39 [place] COMPARISON: CHEST SINGLE AP, October 08, 2016, 16:09. INDICATIONS : Shortness of breath and bilateral lower extremity weakness. MEDICAL HISTORY : Seizures SURGICAL HISTORY : None. ENCOUNTER: Initial ACUITY: 1 day PAIN SCORE: Non-responsive. LOCATION: Bilateral chest FINDINGS: Mild blurring of the image due to patient motion. A single view of the chest demonstrates the lungs to be symmetrically aerated without evidence of mass, infiltrate or effusion. The cardiomediastinal contours are unremarkable. Osseous structures are intact. CONCLUSION: The lungs are clear. Ham Irizarry MD on October 08, 2016 at 23:40 Board Certified Radiologist. This report was verified electronically.
[2016-10-08 23:50] LABS: BLOOD GAS BASE EXCESS -5.1 mmol/L (-2-2); BLOOD GAS CARBOXYHEMOGLOBIN 2.1 % (0-4); BLOOD GAS HCO3 21 mmol/L (22-26); BLOOD GAS O2 HGB SATURATION 90 % (90-100); BLOOD GAS PCO2 51 mmHg (38-42); BLOOD GAS PO2 67 mmHG (61-120); BLOOD GAS TOTAL HGB 10.2 G/DL (12.0-16.0); TEMP CORR TO 98.6
[2016-10-08 23:52] LABS: CRITICAL VALUE YES; DRAW SITE RT BRACHIAL; FIO2 98 %; LITER FLOW 15 L/M; NUMBER OF ARTERIAL PUNCTURES 2; STAT YES; ULNAR PULSE PRESENT
[2016-10-09] VITALS (18 sets, daily range): BP systolic 98–127; BP diastolic 58–82; PULSE 94–114; RESP 9–27; TEMP 97.2–99.6; O2SAT 96–100
[2016-10-09] MEDS ORDERED: CHLORHEXIDINE GLUCONATE 2 % 1 PACK (2 CLOTHS)(extra cloths) TOP PRN (00:30)
[2016-10-09] MEDS: CHLORHEXIDINE GLUCONATE 2 % 1 PACK (2 CLOTHS)(taper/protocol) TOP SCH (00:33)
[2016-10-09] MEDS: HALOPERIDOL LACTATE 5 MG/ML AMP IM PRN ×3 (01:20→12:17)
[2016-10-09] MEDS: ENOXAPARIN SODIUM 40 MG/0.4 ML SYRINGE SQ SCH (01:20)
[2016-10-09 01:34] LABS: BICARBONATE 21.9 MEQ/L (21.0-32.0); POTASSIUM 3.8 MEQ/L (3.5-5.1)
[2016-10-09 01:45] LABS: AUTOMATED NEUTROPHIL # 11.8 TH/MM3 (1.8-7.7); BASOPHIL # 0.1 TH/MM3 (0-0.2); BASOPHIL % 0.8 % (0.0-2.0); EOSINOPHIL # 0.1 TH/MM3 (0-0.4); EOSINOPHIL % 0.6 % (0.0-4.0); HEMATOCRIT 29.7 % (35.0-46.0); HEMO FLAGS AUTO DIFF; LYMPH % 9.8 % (9.0-44.0); LYMPHOCYTE # 1.4 TH/MM3 (1.0-4.8); MEAN CELL VOLUME 89.5 FL (80.0-100.0); MEAN CORPUSCULAR HEMOGLOBIN 30.4 PG (27.0-34.0); MONO % 5.5 % (0.0-8.0); NEUT % 83.3 % (16.0-70.0); PLATELET COUNT 179 TH/MM3 (150-450); RED BLOOD COUNT 3.32 MIL/MM3 (4.00-5.30); RED CELL DISTRIBUTION WIDTH 14.9 % (11.6-17.2); WHITE BLOOD COUNT 14.2 TH/MM3 (4.0-11.0)
[2016-10-09] MEDS: RESP: ALBUTEROL 2.5 MG/IPRATROPIUM 0.5 MG NEB (SCH) NEB ×3 (02:14→11:50)
[2016-10-09 02:55] LABS: PLATELET ESTIMATE SMEAR LOW (NORMAL); PLATELET MORPHOLOGY ENLARGED (NORMAL); SCAN/DIFF AUTO DIFF CONFIRMED
[2016-10-09] MEDS: SODIUM CHLOR 0.9% 1000 ML INJ 1,000 ML IV SCH (03:05)
[2016-10-09 06:01] LABS: BLOOD GAS BASE EXCESS -3.8 mmol/L (-2-2); BLOOD GAS CARBOXYHEMOGLOBIN 1.2 % (0-4); BLOOD GAS HCO3 23 mmol/L (22-26); BLOOD GAS METHEMOGLOBIN 1.1 % (0-2); BLOOD GAS O2 HGB SATURATION 86 % (90-100); BLOOD GAS OXYGEN CONTENT 11.6 Vol % (12.0-20.0); BLOOD GAS PCO2 56 mmHg (38-42); BLOOD GAS PO2 58 mmHg (61-120); BLOOD GAS TOTAL HGB 9.5 G/DL (12.0-16.0); CRITICAL VALUE YES; TEMP CORR TO 98.6
[2016-10-09 06:02] LABS: DRAW SITE LT RADIAL; NUMBER OF ARTERIAL PUNCTURES 1; STAT NO; ULNAR PULSE Y; VENT SETTINGS BIPAP
[2016-10-09 06:12] LABS: HEMATOCRIT 28.8 % (35.0-46.0); MEAN CELL VOLUME 89.7 FL (80.0-100.0); MEAN CORPUSCULAR HEMOGLOBIN 30.1 PG (27.0-34.0); MEAN CORPUSCULAR HGB CONC 33.5 % (32.0-36.0); PLATELET COUNT 152 TH/MM3 (150-450); RED BLOOD COUNT 3.21 MIL/MM3 (4.00-5.30); RED CELL DISTRIBUTION WIDTH 14.9 % (11.6-17.2); REVIEW FLAG FINAL; WHITE BLOOD COUNT 9.9 TH/MM3 (4.0-11.0)
[2016-10-09 06:38] LABS: BICARBONATE 23.8 MEQ/L (21.0-32.0); POTASSIUM 3.7 MEQ/L (3.5-5.1)
--- NOTE | 2016-10-09 08:45 | HHI.PR ---
Subjective Remarks Patient seen in follow-up for sepsis secondary to UTI, benzodiazepine overdose, and encephalopathy. Patient went into respiratory distress overnight and was put on a Bipap. ABG early this morning with no significant improvement compared to last night. She is more calm this morning and maintaining her oxygen saturation on the BiPAP. She is aware of self and that she is in the hospital but remain encephalopathic with marked confusion. Objective Vitals Vital Signs Date Time Temp Pulse Resp B/P Pulse Ox O2 Delivery O2 Flow Rate FiO2 10/09/16 06:00 103 10/09/16 04:00 100 Bi-Pap 50 10/09/16 04:00 97 10/09/16 04:00 97.2 100 16 108/61 100 10/09/16 03:33 96 60 10/09/16 02:00 106 10/09/16 00:58 100 Bi-Pap 50 10/09/16 00:56 98 60 10/09/16 00:00 85 Non-Rebreather 15.00 10/09/16 00:00 98.7 114 9 98/67 98 10/08/16 23:15 127 22 123/67 95 10/08/16 23:15 98 Non-Rebreather 10/08/16 22:50 127 24 123/67 81 10/08/16 20:00 98.1 119 18 114/76 90 10/08/16 20:00 119 10/08/16 20:00 98.1 119 18 114/76 90 10/08/16 16:00 97.6 111 14 105/62 93 10/08/16 16:00 97.6 111 14 105/62 93 10/08/16 16:00 111 10/08/16 12:00 97.8 113 18 105/68 92 10/08/16 12:00 113 10/08/16 12:00 97.8 113 18 105/68 92 10/08/16 09:14 99.3 117 14 122/68 92 10/08/16 09:10 92 Nasal Cannula 4.00 10/08/16 09:10 114 I/O 10/08/16 10/08/16 10/08/16 10/09/16 10/09/16 10/09/16 07:00 15:00 23:00 07:00 15:00 23:00 Intake Total 1220 ml 760 ml 928 ml Output Total 700 ml Balance 1220 ml 760 ml 228 ml Intake Oral 920 ml 360 ml 0 ml IV Total 300 ml 400 ml 928 ml Output Urine Total 700 ml # Voids 6 8 # Bowel Movements 11 11 0 Result Diagram: 10/09/1651710/09/16517 Objective Remarks CONSTITUTIONAL/GENERAL: Obese female, on BiPAP. HEAD: Atraumatic. Normocephalic. EYES: Pupils equal and round and reactive. Extra ocular motions are intact. No scleral icterus. No injection or drainage. ENT: Hearing grossly normal. Nose without drainage. Throat without visible erythema, exudates, masses, or lesions. NECK: Trachea midline. Neck is supple, non-tender. No palpable thyroid enlargement or nodularity. CARDIOVASCULAR: Normal rate and regular rhythm without murmurs, gallops, or rubs. No JVD. Peripheral pulses 2+ and symmetric. RESPIRATORY/CHEST: Symmetric, unlabored respirations. Breath sounds equal and clear to auscultation bilaterally. No wheezes, crackles, rales, or rhonchi. GASTROINTESTINAL: Abdomen soft, non-tender, non-distended. No hepato- splenomegaly, or palpable masses. No guarding. Bowel sounds present. MUSCULOSKELETAL: Bilateral knees tender to palpation in the anterior compartment. The right knee has an abrasion. Mild effusion on the right knee. NEUROLOGICAL: Awake but drowsy. Move all extremities spontaneously. No focal deficits. PSYCHIATRIC: Calm A/P Assessment and Plan 51-year-old female admitted with sepsis secondary to UTI, toxic encephalopathy due to benzo overdose and/or alcohol withdrawal. Patient went into respiratory failure on the night of 10/08/15 requiring Bipap. Acute hypoxemic, hypercapnic respiratory failure: Atelectasis on x-ray. No infectious process noted. Could be secondary to overdose and/or alcohol withdrawal. - Continue BiPAP for now and repeat ABG in 4 hours. If no improvement or her respiratory status get worse, will consult cloth reeler. - Add Solu-Medrol. She is a smoker and had some wheezing. COPD not excluded - Schedule breathing treatments. Sepsis secondary to UTI: Urine growing gram neg alex. - Continue Rocephin, IV fluid and supportive care. - Follow urine cultures Encephalopathy secondary to benzodiazepine overdose and alcohol abuse. Patient also has a history of polysubstance abuse. - Patient reports that she drank alcohol for chronic pain. unclear when her last drink was. Apparently took 4 Klonopin prior to arrival. She is still drowsy. - Continue supportive care. Avoid sedating medications. - [facility] protocol Bilateral knee pain likely secondary to previous fall - Bilateral knee x-ray images reviewed. Left knee x-ray unremarkable. Right knee with a mild effusion. No fracture is identified. - Continue supportive care and pain control with Lortab. PT when able. GI prophylaxis: Pepcid. Stool softener PRN constipation. DVT PPx: Lovenox Discharge Planning Keep in ICU. Patient critically ill and at risk of worsening respiratory failure. Zaki Simms MD Oct 09, 2016 08:45
[2016-10-09] MEDS: FAMOTIDINE 20 MG TAB PO SCH ×3 (10:39→21:13)
[2016-10-09] MEDS: LACTULOSE SYRUP 20 GM/30 ML CUP PO SCH ×5 (10:39→21:13)
[2016-10-09] MEDS: methylPREDNISolone SOD SUCC 40 MG/1 ML VIAL IV PUSH SCH ×2 (10:44→16:02)
[2016-10-09 12:12] LABS: BLOOD GAS CARBOXYHEMOGLOBIN 1.2 % (0-4); BLOOD GAS HCO3 23 mmol/L (22-26); BLOOD GAS METHEMOGLOBIN 1.2 % (0-2); BLOOD GAS O2 HGB SATURATION 96 % (90-100); BLOOD GAS OXYGEN CONTENT 13.9 Vol % (12.0-20.0); BLOOD GAS PCO2 55 mmHg (38-42); BLOOD GAS PO2 132 mmHg (61-120); BLOOD GAS TOTAL HGB 10.1 G/DL (12.0-16.0); TEMP CORR TO 98.6
[2016-10-09 12:13] LABS: CRITICAL VALUE YES
[2016-10-09 12:14] LABS: DRAW SITE RT RADIAL; FIO2 80 %; NUMBER OF ARTERIAL PUNCTURES 1; OXYGEN DEVICE BiPAP IPAP 12/EPAP5; STAT NO; ULNAR PULSE PRESENT
[2016-10-09] MEDS ORDERED: LORazepam 2 MG/ML VIAL ONE (14:16)
[2016-10-09] MEDS: DEXMEDETOMIDINE 200 MCG/50 ML NS IV SCH ×2 (14:23→16:01)
[2016-10-09] MEDS ORDERED: RESP: ALBUTEROL 2.5 MG/IPRATROPIUM 0.5 MG NEB (PRN) INH (14:30)
[2016-10-09] MEDS ORDERED: DEXTROSE 50% IN WATER 50 ML VIAL(D50) IV PUSH PRN (14:30)
[2016-10-09] MEDS: DIAZEPAM 5 MG TAB PO SCH ×3 (14:30→21:54)
[2016-10-09] MEDS ORDERED: LORazepam 2 MG/ML VIAL IV ONE (14:30)
[2016-10-09] MEDS: HALOPERIDOL LACTATE 5 MG/ML AMP IV PRN ×3 (14:57→22:04)
[2016-10-09] MEDS: RESP: ALBUTEROL 2.5 MG/IPRATROPIUM 0.5 MG NEB (SCH) INH ×2 (15:45→20:52)
[2016-10-09 16:55] LABS: BLOOD, URINE TRACE (NEG); GLUCOSE,URINE NEG (NEG); KETONE, URINE 40 mg/dL (NEG); MUCUS URINE FEW /lpf (OCC); NITRITE,URINE NEG (NEG); URINE COLOR YELLOW (YELLW/STRAW)
[2016-10-09 16:57] LABS: COMMENT (UR) CATH-CULT NOT IND; CULTURE IF INDICATED CATH CULTURE NOT IND
[2016-10-09] MEDS: INSULIN NovoLIN REGULAR SUPPLEMENTAL SCALE SQ SCH (17:36)
[2016-10-09] MEDS: DEXMEDETOMIDINE INJ 1,000 MCG in SODIUM CHLOR 0.9% 250 ML INJ 240 ML IV SCH (17:37)
--- NOTE | 2016-10-09 17:54 | PD.CONS ---
[facility] Service Critical Care Medicine Consult Requested By Dr. Simms Reason for Consult Hypoxia, delirium Primary Care Physician Unknown History of Present Illness This is a 51-year-old female with a history of COPD and benzodiazepine use was brought to the emergency department by EMS for weakness and altered mental status. She reportedly took extra clonazepam because of her anxiety she was initially admitted for possible benzodiazepine overdose. Overnight, she went into worsening respiratory distress and was placed on BiPAP. She remained hypoxic throughout the night and this morning despite BiPAP. This morning, she is slightly improved on her hypoxia, but remains on high BiPAP settings. In addition, she is much more agitated this morning, wanting to leave AMA, trying to pull the BiPAP mask off. With the BiPAP is off, her SPO2 is in the 70s. Critical-care medicine is consulted to evaluate her agitated delirium and hypoxemia. When I arrived to evaluate the patient at bedside, and she was restrained, agitated, SPO2 100% on BiPAP. His difficulty to complete history from the patient given her agitated delirium. When I evaluated the patient, she was restrained and on BiPAP. I evaluated the patient in approximately 1:20 PM. I immediately and actually plan with the nurse to start Precedex and to get control of her severe agitation, and at the earliest possible time to remove the restraints. We made a plan that the restraints were to be removed by 2 PM. Review of Systems ROS Limitations: Clinical Condition, Altered Mental Status, Uncooperative, Combative Past Family Social History Allergies: Coded Allergies: No Known Allergies (Verified , 05/09/06) Past Medical History Anxiety COPD Hypertension Panic attacks Seizures Past Surgical History delivery Partial hysterectomy Tumor removed from back Physical Exam Vital Signs Vital Signs Date Time Temp Pulse Resp B/P Pulse Ox O2 Delivery O2 Flow Rate FiO2 10/09/16 15:46 97 70 10/09/16 14:00 94 10/09/16 12:00 97 10/09/16 10:00 97 10/09/16 08:29 96 80 10/09/16 08:00 109 10/09/16 08:00 99.4 109 25 119/58 97 10/09/16 06:00 103 10/09/16 04:00 100 Bi-Pap 50 10/09/16 04:00 97 10/09/16 04:00 97.2 100 16 108/61 100 10/09/16 03:33 96 60 10/09/16 02:00 106 10/09/16 00:58 100 Bi-Pap 50 10/09/16 00:56 98 60 10/09/16 00:00 85 Non-Rebreather 15.00 10/09/16 00:00 98.7 114 9 98/67 98 10/08/16 23:15 127 22 123/67 95 10/08/16 23:15 98 Non-Rebreather 10/08/16 22:50 127 24 123/67 81 10/08/16 20:00 98.1 119 18 114/76 90 10/08/16 20:00 119 10/08/16 20:00 98.1 119 18 114/76 90 Physical Exam GENERAL: Middle-aged female, sitting in bed, severely agitated, in moderate distress HEENT:, atraumatic. pupils equally round and reactive. NECK: Trachea is midline. JVD is unable to be assessed secondary to body habitus. BiPAP mask in place CHEST: Significant tachypnea. Very labored. Significant expiratory wheezes. CARDIOVASCULAR: Tachycardic rate, regular rhythm. Hypertensive. No appreciable murmurs. ABDOMEN: Obese, soft, nontender, nondistended. No guarding. MUSCULOSKELETAL: 1+ peripheral edema. Distal pulses 2+ NEUROLOGICAL: RASS +1. Follows commands. Severely agitated. Telling me she wants to go home. Telling me she wants the mask off. Laboratory Laboratory Tests Test 10/08/16 10/09/16 10/09/16 10/09/16 23:38 00:14 01:03 05:18 Blood Gas Puncture Site RT BRACHIAL Blood Gas Patient Temperature 98.6 Blood Gas HCO3 21 Blood Gas Base Excess -5.1 Blood Gas Oxygen Saturation 90 Arterial Blood pH 7.24 Arterial Blood Partial 51 Pressure CO2 Arterial Blood Partial 67 Pressure O2 Arterial Blood Oxygen Content 13.0 Arterial Blood 2.1 Carboxyhemoglobin Arterial Blood Methemoglobin 2.0 Blood Gas Hemoglobin 10.2 Oxygen Delivery Device Non-Rebreathing Mask Blood Gas Liter Flow 15 Blood Gas Inspired Oxygen 98 Nasal Screen MRSA (PCR) NEGATIVE White Blood Count 14.2 9.9 Red Blood Count 3.32 3.21 Hemoglobin 10.1 9.7 Hematocrit 29.7 28.8 Mean Corpuscular Volume 89.5 89.7 Mean Corpuscular Hemoglobin 30.4 30.1 Mean Corpuscular Hemoglobin 34.0 33.5 Concent Red Cell Distribution Width 14.9 14.9 Platelet Count 179 152 Mean Platelet Volume 10.2 10.1 Neutrophils (%) (Auto) 83.3 Lymphocytes (%) (Auto) 9.8 Monocytes (%) (Auto) 5.5 Eosinophils (%) (Auto) 0.6 Basophils (%) (Auto) 0.8 Neutrophils # (Auto) 11.8 Lymphocytes # (Auto) 1.4 Monocytes # (Auto) 0.8 Eosinophils # (Auto) 0.1 Basophils # (Auto) 0.1 CBC Comment AUTO DIFF Differential Comment AUTO DIFF CONFIRMED Platelet Estimate LOW Platelet Morphology Comment ENLARGED Sodium Level 143 144 Potassium Level 3.8 3.7 Chloride Level 114 112 Carbon Dioxide Level 21.9 23.8 Anion Gap 7 8 Blood Urea Nitrogen 9 8 Creatinine 0.60 0.50 Estimat Glomerular Filtration 105 129 Rate Random Glucose 117 92 Lactic Acid Level 0.6 Calcium Level 7.9 7.6 Test 10/09/16 10/09/16 10/09/16 05:55 12:00 13:40 Blood Gas Puncture Site LT RADIAL RT RADIAL Blood Gas Patient Temperature 98.6 98.6 Blood Gas HCO3 23 23 Blood Gas Base Excess -3.8 -3.0 Blood Gas Oxygen Saturation 86 96 Arterial Blood pH 7.23 7.25 Arterial Blood Partial 56 55 Pressure CO2 Arterial Blood Partial 58 132 Pressure O2 Arterial Blood Oxygen Content 11.6 13.9 Arterial Blood 1.2 1.2 Carboxyhemoglobin Arterial Blood Methemoglobin 1.1 1.2 Blood Gas Hemoglobin 9.5 10.1 Blood Gas Ventilator Setting BIPAP Oxygen Delivery Device BiPAP IPAP 12/EPAP5 Blood Gas Inspired Oxygen 80 Urine Color YELLOW Urine Turbidity CLEAR Urine pH 6.0 Urine Specific [place] 1.012 Urine Protein TRACE Urine Glucose (UA) NEG Urine Ketones 40 Urine Occult Blood TRACE Urine Nitrite NEG Urine Bilirubin NEG Urine Urobilinogen LESS THAN 2.0 Urine Leukocyte Esterase NEG Urine RBC 2 Urine WBC 2 Urine Mucus FEW Microscopic Urinalysis Comment CATH-CULT NOT IND Date/Time Procedure Status Source Growth 10/07/16 20:20 Urine Culture - Final Complete Urine Clean Catch Escherichia Coli Result Diagram: 10/09/16 0518 10/09/1618 Assessment and Plan Assessment and Plan Assessment: This is a 51-year-old female with history of benzodiazepine use and COPD who presents with a COPD exacerbation as well as a suspected benzodiazepine overdose initially. I do think the hypertensive, the tachycardia , the delirium is all significant for probable benzodiazepine withdrawal. I think there is concomitant COPD exacerbation. The combination is making this a very difficult problem to control. Her delirium is preventing the BiPAP mask from being appropriately used, and the patient is hypoxic. We will aggressively attempt to treat her agitated delirium with benzodiazepines and dexmedetomidine. If we are unable to accomplish this, the patient will require intubation and mechanical ventilation to protect her from both a pulmonary standpoint and a agitated delirium standpoint. Certainly she remains critically ill with 2 organ systems are threat to life. Active problems: Acute hypoxic and hypercarbic respiratory failure Acute severe agitated delirium Plan: Haldol 5 mg IV every hour her severe agitation Precedex infusion Ativan 1 mg IV every hour as needed for agitation or withdrawal symptoms RASS goal 0 Scheduled Valium 10 mg by mouth every 8 hours We'll plan to remove restraints by 2 PM. If she cannot be appropriately controlled pharmacologically, we will proceed with intubation and mechanical ventilation to protect the patient. I agree with the hospitalist steroids and albuterol for COPD exacerbation At the moment we can continue to try BiPAP for hypoxemia. This patient remains critically ill with one or more organ systems which are or may become a threat to life. I have spent in excess of 49 minutes discontinuously in the care and management of this patient. This time is exclusive of procedures, and includes, but is not limited to, evaluation of the patient, review of the medical record, discussions with family, consultants, nursing staff, or respiratory therapy, and documentation in the medical record. Palmer Gomez MD Oct 09, 2016 17:54
[2016-10-09] MEDS: cefTRIAXone INJ 1,000 MG in SODIUM CHLORIDE 0.9% INJ 100 ML IV SCH (21:13)
[2016-10-09] MEDS: LORazepam 2 MG/ML VIAL IV PUSH PRN (23:29)
[2016-10-10] VITALS (14 sets, daily range): BP systolic 159–184; BP diastolic 79–100; PULSE 91–184; RESP 21–29; TEMP 98–99.7; O2SAT 94–99
[2016-10-10] MEDS: INSULIN NovoLIN REGULAR SUPPLEMENTAL SCALE SQ SCH ×5 (00:10→23:53)
[2016-10-10] MEDS: methylPREDNISolone SOD SUCC 40 MG/1 ML VIAL IV PUSH SCH ×3 (00:10→17:32)
[2016-10-10] MEDS: ENOXAPARIN SODIUM 40 MG/0.4 ML SYRINGE SQ SCH ×2 (00:10→23:52)
[2016-10-10] MEDS: DEXMEDETOMIDINE INJ 1,000 MCG in SODIUM CHLOR 0.9% 250 ML INJ 240 ML IV SCH ×3 (00:15→22:38)
[2016-10-10] MEDS: LORazepam 2 MG/ML VIAL IV PUSH PRN ×5 (01:14→23:53)
[2016-10-10] MEDS: HALOPERIDOL LACTATE 5 MG/ML AMP IV PRN ×4 (02:40→13:26)
[2016-10-10] MEDS: RESP: ALBUTEROL 2.5 MG/IPRATROPIUM 0.5 MG NEB (SCH) INH ×4 (03:15→19:53)
[2016-10-10] MEDS: CHLORHEXIDINE GLUCONATE 2 % 1 PACK (2 CLOTHS)(taper/protocol) TOP SCH (04:00)
[2016-10-10] MEDS ORDERED: METOPROLOL TARTRATE 5 MG/5 ML VIAL IV PUSH SCH (05:30)
[2016-10-10] MEDS: DIAZEPAM 5 MG TAB PO SCH ×3 (06:00→22:00)
[2016-10-10 07:10] LABS: MEAN CELL VOLUME 88.8 FL (80.0-100.0); MEAN CORPUSCULAR HEMOGLOBIN 29.8 PG (27.0-34.0); MEAN CORPUSCULAR HGB CONC 33.6 % (32.0-36.0); PLATELET COUNT 178 TH/MM3 (150-450); RED BLOOD COUNT 3.61 MIL/MM3 (4.00-5.30); RED CELL DISTRIBUTION WIDTH 14.6 % (11.6-17.2); REVIEW FLAG FINAL; WHITE BLOOD COUNT 11.9 TH/MM3 (4.0-11.0)
[2016-10-10 07:15] LABS: BICARBONATE 24.8 MEQ/L (21.0-32.0)
[2016-10-10] MEDS: LACTULOSE SYRUP 20 GM/30 ML CUP PO SCH ×4 (08:44→20:29)
[2016-10-10] MEDS: FAMOTIDINE 20 MG TAB PO SCH ×2 (08:44→20:30)
[2016-10-10] MEDS ORDERED: CHLOROTHIAZIDE SOD 500 MG VIAL IV ONE (11:15)
[2016-10-10] MEDS ORDERED: BUMETANIDE INJ 1 MG/4 ML VIAL IV PUSH ONE (11:15)
[2016-10-10] MEDS ORDERED: ZIPRASIDONE MESYLATE 20 MG VIAL IM ONE (11:30)
--- NOTE | 2016-10-10 13:13 | HHI.PYPN ---
Subjective Remarks . Patient medical intensive care unit for ovary also appears drugs including and not limited to show also severely distress secondary to her COPD. The combination is exacerbating the symptoms of both.. Patient is a history of drug overdose over the past 10 years. At the prednisone the patient is sedated and in 4. restraints. Dr. reyna consultation reviewed and agreed with an appreciated. I concur with the impression of delirium superimposed on severe COPD. At this time I am unable to do further assessment patient due to her stuporous metastases. Will check back tomorrow Review of Systems Other Patient's stuporous unable to ascertain Objective Alert: No [place]: Situation (patient stuporous unable to ascertain) Mood: Other (patient stuporous) Affect: Other (nurse assistant stuporous) Memory Intact: Comment (patient stuporous) Hallucinations: Other (patient stuporous) Delusions: No (patient stuporous) Delusion Type: Other (patient stuporous) Suicidal: Ideation Homicidal: Ideation (patient stuporous) Insight/Judgement Patient stuporous Labs Test 10/09/16 10/10/16 13:40 05:39 Urine Color YELLOW Urine Turbidity CLEAR Urine pH 6.0 Urine Specific [place] 1.012 Urine Protein TRACE mg/dL Urine Glucose (UA) NEG mg/dL Urine Ketones 40 mg/dL Urine Occult Blood TRACE Urine Nitrite NEG Urine Bilirubin NEG Urine Urobilinogen LESS THAN 2.0 MG/DL Urine Leukocyte Esterase NEG Urine RBC 2 /hpf Urine WBC 2 /hpf Urine Mucus FEW /lpf Microscopic Urinalysis Comment CATH-CULT NOT IND White Blood Count 11.9 TH/MM3 Red Blood Count 3.61 MIL/MM3 Hemoglobin 10.8 GM/DL Hematocrit 32.0 % Mean Corpuscular Volume 88.8 FL Mean Corpuscular Hemoglobin 29.8 PG Mean Corpuscular Hemoglobin 33.6 % Concent Red Cell Distribution Width 14.6 % Platelet Count 178 TH/MM3 Mean Platelet Volume 10.7 FL Sodium Level 144 MEQ/L Potassium Level 4.0 MEQ/L Chloride Level 109 MEQ/L Carbon Dioxide Level 24.8 MEQ/L Anion Gap 10 MEQ/L Blood Urea Nitrogen 12 MG/DL Creatinine 0.74 MG/DL Estimat Glomerular Filtration 82 ML/MIN Rate Random Glucose 158 MG/DL Calcium Level 8.8 MG/DL Date/Time Procedure Status Source Growth 10/07/16 20:20 Urine Culture - Final Complete Urine Clean Catch Escherichia Coli Vitals/IOs Vital Signs Date Time Temp Pulse Resp B/P Pulse Ox O2 Delivery O2 Flow Rate FiO2 10/10/16 10:00 97 10/10/16 08:00 98.8 22 173/79 97 10/10/16 08:00 Bi-Pap 50 10/10/16 07:42 4.00 Intake and Output 10/09/16 10/09/16 10/10/16 08:00 16:00 00:00 Intake Total 928 ml 895 ml 422 ml Output Total 700 ml 725 ml 700 ml Balance 228 ml 170 ml -278 ml Assessment & Plan Problem List: (1) Delirium due to another medical condition, acute, mixed level of activity ICD Code: F05 Assessment & Plan Estimated LOS: days. Patient stuporous at this time Justification for Cont. Inpt. Patient stuporous Discharge Planning To be determined Gino Shoemaker MD Oct 10, 2016 13:12
[2016-10-10] MEDS ORDERED: BUMETANIDE INJ 100 ML IV SCH (13:15)
[2016-10-10] MEDS ORDERED: QUEtiapine FUMARATE 100 MG TAB PO SCH (15:15)
--- NOTE | 2016-10-10 15:44 | HHI.CCPN ---
Subjective Remarks/Hospital Course Hospital Course: This is a 51-year-old female with a history of COPD and benzodiazepine use was brought to the emergency department by EMS for weakness and altered mental status. She reportedly took extra clonazepam because of her anxiety she was initially admitted for possible benzodiazepine overdose. Overnight, she went into worsening respiratory distress and was placed on BiPAP. She remained hypoxic throughout the night and this morning despite BiPAP. This morning, she is slightly improved on her hypoxia, but remains on high BiPAP settings. In addition, she is much more agitated this morning, wanting to leave AMA, trying to pull the BiPAP mask off. With the BiPAP is off, her SPO2 is in the 70s. Critical-care medicine is consulted to evaluate her agitated delirium and hypoxemia. When I arrived to evaluate the patient at bedside, and she was restrained, agitated, SPO2 100% on BiPAP. His difficulty to complete history from the patient given her agitated delirium. When I evaluated the patient, she was restrained and on BiPAP. I evaluated the patient in approximately 1:20 PM. I immediately and actually plan with the nurse to start Precedex and to get control of her severe agitation, and at the earliest possible time to remove the restraints. We made a plan that the restraints were to be removed by 2 PM. Subjective: 10/10: continues to be severely agitated. haldol and ativan on top of scheduled valium not adequate. hypoxia is resolving, though. now on NC o2. UTI with e- coli sensitive to rocephin. Objective Vital Signs Date Time Temp Pulse Resp B/P Pulse Ox O2 Delivery O2 Flow Rate FiO2 10/10/16 14:00 97 10/10/16 12:00 98.0 22 174/100 97 10/10/16 12:00 Nasal Cannula 6.00 50 Bi-Pap Intake and Output 10/09/16 10/09/16 10/10/16 08:00 16:00 00:00 Intake Total 928 ml 895 ml 422 ml Output Total 700 ml 725 ml 700 ml Balance 228 ml 170 ml -278 ml Result Diagram: 10/10/16 0539 10/10/16 0539 Other Results Microbiology Date/Time Procedure Status Source Growth 10/07/16 20:20 Urine Culture - Final Complete Urine Clean Catch Escherichia Coli Objective Remarks GENERAL: Middle-aged female, sitting in bed, severely agitated HEENT:, atraumatic. pupils equally round and reactive. NECK: Trachea is midline. JVD is unable to be assessed secondary to body habitus. on NC o2. CHEST: much less tachypneic. scant expiratory wheezing. CARDIOVASCULAR: Tachycardic rate, regular rhythm. Hypertensive. No appreciable murmurs. ABDOMEN: Obese, soft, nontender, nondistended. No guarding. MUSCULOSKELETAL: 1+ peripheral edema. Distal pulses 2+ NEUROLOGICAL: RASS +1. Follows commands. Severely agitated. A/P Assessment and Plan Assessment: This is a 51-year-old female with history of benzodiazepine use and COPD who presents with a COPD exacerbation as well as a suspected benzodiazepine overdose initially. I do think the hypertensive, the tachycardia , the delirium is all significant for probable benzodiazepine withdrawal. I think there is concomitant COPD exacerbation. Her COPD exacerbation is stabilizing out, but she still requires significant amounts of anti-delirium medication as well as benzodiazepines to control her delirium, on top of a continuous precedex infusion. I think given how refractory her delirium is, this delirium is still life-threatening, as if left untreated, she would likely deteriorate again from a pulmonary stand point. Thus, she remains critically ill at this time and is not on pathway. Active problems: Acute hypoxic and hypercarbic respiratory failure Acute severe agitated delirium E.Coli UTI. COPD exacerbation Plan: --Valium 5mg po q8h scheduled --Geodon 10mg IM q12h prn for agitation Haldol 5 mg IV every hour her severe agitation Precedex infusion Ativan 1 mg IV every hour as needed for agitation or withdrawal symptoms RASS goal 0 Continue steroids and albuterol for COPD exacerbation wean o2 by NC for goal spo2 > 90% --continue Rocephin 1gm iv q24h for E.Coli UTI. Anticipated stop date of 10/14 ( 7 day course) --daily CBC, BMP --NPO given severe agitation. will advance diet when more calm and alert. Prophy: SCDs, Pepcid, Lovenox. Dispo: remain in the ICU. This patient remains critically ill with one or more organ systems which are or may become a threat to life. I have spent in excess of 30 minutes discontinuously in the care and management of this patient. This time is exclusive of procedures, and includes, but is not limited to, evaluation of the patient, review of the medical record, discussions with family, consultants, nursing staff, or respiratory therapy, and documentation in the medical record. Palmer Gomez MD Oct 10, 2016 15:44
[2016-10-10] MEDS ORDERED: ZIPRASIDONE MESYLATE 20 MG VIAL IM PRN (15:45)
[2016-10-10] MEDS ORDERED: LABETALOL HCL 100 MG/20 ML VIAL IV PUSH PRN (20:15)
[2016-10-10] MEDS: cefTRIAXone INJ 1,000 MG in SODIUM CHLORIDE 0.9% INJ 100 ML IV SCH (20:28)
[2016-10-10] MEDS: hydrALAZINE HCL 20 MG/ML VIAL IV PUSH PRN (23:53)
[2016-10-11] VITALS (14 sets, daily range): BP systolic 127–181; BP diastolic 59–97; PULSE 68–89; RESP 17–29; TEMP 98–99.7; O2SAT 97–100
[2016-10-11] MEDS: methylPREDNISolone SOD SUCC 40 MG/1 ML VIAL IV PUSH SCH ×3 (00:01→17:00)
[2016-10-11] MEDS: RESP: ALBUTEROL 2.5 MG/IPRATROPIUM 0.5 MG NEB (SCH) INH ×4 (02:35→19:57)
[2016-10-11] MEDS: HALOPERIDOL LACTATE 5 MG/ML AMP IV PRN ×3 (03:45→20:02)
[2016-10-11] MEDS: CHLORHEXIDINE GLUCONATE 2 % 1 PACK (2 CLOTHS)(taper/protocol) TOP SCH (03:46)
[2016-10-11] MEDS: HYDROmorphone HCL PF 1 MG/ML VIAL IV PUSH PRN ×2 (03:46→20:18)
[2016-10-11] MEDS: INSULIN NovoLIN REGULAR SUPPLEMENTAL SCALE SQ SCH ×4 (05:55→23:02)
[2016-10-11] MEDS: DIAZEPAM 5 MG TAB PO SCH ×3 (05:55→22:59)
[2016-10-11 05:58] LABS: BICARBONATE 22.5 MEQ/L (21.0-32.0); POTASSIUM 3.5 MEQ/L (3.5-5.1)
[2016-10-11] MEDS: LABETALOL HCL 100 MG/20 ML VIAL IV PUSH PRN (06:07)
[2016-10-11 07:17] LABS: HEMATOCRIT 36.3 % (35.0-46.0); MEAN CELL VOLUME 92.1 FL (80.0-100.0); MEAN CORPUSCULAR HGB CONC 32.5 % (32.0-36.0); PLATELET COUNT 178 TH/MM3 (150-450); RED BLOOD COUNT 3.94 MIL/MM3 (4.00-5.30); RED CELL DISTRIBUTION WIDTH 14.8 % (11.6-17.2); REVIEW FLAG FINAL; WHITE BLOOD COUNT 15.4 TH/MM3 (4.0-11.0)
[2016-10-11] MEDS: LACTULOSE SYRUP 20 GM/30 ML CUP PO SCH ×5 (08:17→23:08)
[2016-10-11] MEDS: FAMOTIDINE 20 MG TAB PO SCH ×2 (08:17→19:53)
[2016-10-11] MEDS: hydrALAZINE HCL 20 MG/ML VIAL IV PUSH PRN ×2 (08:20→19:54)
--- NOTE | 2016-10-11 14:40 | EKG ---
Date Performed: 10/11/2016 Time Performed: 06:24:58 PTAGE: 51 years EKG: Sinus arrhythmia Prolonged QT interval Borderline ECG Compared to the PREVIOUS TRACING from 10/07/16 at 21:39, rate has decreased and noted changes of T waves l aterally DOCTOR: Parker Ricks Interpretating Date/Time 10/11/2016 14:38:04
--- NOTE | 2016-10-11 15:46 | HHI.PYPN ---
Subjective Remarks Attempted to see patient today with nurse, patient's or more arousable who still markedly sedated responding only now with a scream if she is irritated with attempts at it hygiene our care such as re-positioning her nasal cannula. Patient still unable to be properly assessed due to this situation. Would suggest use of Haldol if she becomes more aggressive or angry. Either myself or Dr. Willingham will follow-up Review of Systems Except as stated in HPI: all other systems reviewed are Neg Objective Alert: No Gambell: Situation (patient stuporous unable to ascertain) Mood: Other (patient stuporous) Affect: Other (credit assistant stuporous) Memory Intact: Comment (patient stuporous) Hallucinations: Other (patient stuporous) Delusions: No (patient stuporous) Delusion Type: Other (patient stuporous) Suicidal: Ideation Homicidal: Ideation (patient stuporous) Insight/Judgement Nil Labs Test 10/11/16 10/11/16 04:40 04:41 Sodium Level 142 MEQ/L Potassium Level 3.5 MEQ/L Chloride Level 106 MEQ/L Carbon Dioxide Level 22.5 MEQ/L Anion Gap 14 MEQ/L Blood Urea Nitrogen 18 MG/DL Creatinine 0.59 MG/DL Estimat Glomerular Filtration 107 ML/MIN Rate Random Glucose 165 MG/DL Calcium Level 8.2 MG/DL White Blood Count 15.4 TH/MM3 Red Blood Count 3.94 MIL/MM3 Hemoglobin 11.8 GM/DL Hematocrit 36.3 % Mean Corpuscular Volume 92.1 FL Mean Corpuscular Hemoglobin 30.0 PG Mean Corpuscular Hemoglobin 32.5 % Concent Red Cell Distribution Width 14.8 % Platelet Count 178 TH/MM3 Mean Platelet Volume 9.5 FL Hematology Comments Date/Time Procedure Status Source Growth 10/07/16 20:20 Urine Culture - Final Complete Urine Clean Catch Escherichia Coli Vitals/IOs Vital Signs Date Time Temp Pulse Resp B/P Pulse Ox O2 Delivery O2 Flow Rate FiO2 10/11/16 14:00 70 10/11/16 12:00 99 Nasal Cannula 2.00 Bi-Pap 10/11/16 12:00 98.4 22 145/68 10/10/16 16:00 50 Intake and Output 10/10/16 10/10/16 10/11/16 08:00 16:00 00:00 Intake Total 366 ml 550 ml 355 ml Output Total 400 ml 850 ml 550 ml Balance -34 ml -300 ml -195 ml Assessment & Plan Problem List: (1) Delirium due to another medical condition, acute, mixed level of activity ICD Code: F05 Assessment & Plan Estimated LOS: days patient continues delirious stuporous unable to be further assessed will follow up with either myself or Dr. Cortez Justification for Cont. Inpt. Patient markedly delirious. MRSA pneumonia care of herself Discharge Planning To be determined Gino Shoemaker MD Oct 11, 2016 15:46
[2016-10-11] MEDS: DEXMEDETOMIDINE INJ 1,000 MCG in SODIUM CHLOR 0.9% 250 ML INJ 240 ML IV SCH (19:53)
--- NOTE | 2016-10-11 22:26 | HHI.CCPN ---
Subjective Remarks/Hospital Course Hospital Course: This is a 51-year-old female with a history of COPD and benzodiazepine use was brought to the emergency department by EMS for weakness and altered mental status. She reportedly took extra clonazepam because of her anxiety she was initially admitted for possible benzodiazepine overdose. Overnight, she went into worsening respiratory distress and was placed on BiPAP. She remained hypoxic throughout the night and this morning despite BiPAP. This morning, she is slightly improved on her hypoxia, but remains on high BiPAP settings. In addition, she is much more agitated this morning, wanting to leave AMA, trying to pull the BiPAP mask off. With the BiPAP is off, her SPO2 is in the 70s. Critical-care medicine is consulted to evaluate her agitated delirium and hypoxemia. When I arrived to evaluate the patient at bedside, and she was restrained, agitated, SPO2 100% on BiPAP. His difficulty to complete history from the patient given her agitated delirium. When I evaluated the patient, she was restrained and on BiPAP. I evaluated the patient in approximately 1:20 PM. I immediately and actually plan with the nurse to start Precedex and to get control of her severe agitation, and at the earliest possible time to remove the restraints. We made a plan that the restraints were to be removed by 2 PM. Subjective: 10/10: continues to be severely agitated. haldol and ativan on top of scheduled valium not adequate. hypoxia is resolving, though. now on NC o2. UTI with e- coli sensitive to rocephin. 10/11: acute delirium persists. amanda added yesterday with some improvement in RASS score, but still significantly CAM+. Objective Vital Signs Date Time Temp Pulse Resp B/P Pulse Ox O2 Delivery O2 Flow Rate FiO2 10/11/16 19:55 100 Nasal Cannula 2.00 10/11/16 18:00 70 10/11/16 16:00 98.3 22 162/79 10/10/16 16:00 50 Intake and Output 10/10/16 10/10/16 10/11/16 08:00 16:00 00:00 Intake Total 366 ml 550 ml 355 ml Output Total 400 ml 850 ml 550 ml Balance -34 ml -300 ml -195 ml Result Diagram: 10/11/16 0441 10/11/16 0440 Objective Remarks GENERAL: Middle-aged female, sitting in bed, severely agitated HEENT:, atraumatic. pupils equally round and reactive. NECK: Trachea is midline. JVD is unable to be assessed secondary to body habitus. on NC o2. CHEST: much less tachypneic. scant expiratory wheezing. CARDIOVASCULAR: Tachycardic rate, regular rhythm. Hypertensive. No appreciable murmurs. ABDOMEN: Obese, soft, nontender, nondistended. No guarding. MUSCULOSKELETAL: 1+ peripheral edema. Distal pulses 2+ NEUROLOGICAL: RASS +1. Follows commands. Severely agitated. A/P Assessment and Plan Assessment: This is a 51-year-old female with history of benzodiazepine use and COPD who presents with a COPD exacerbation as well as a suspected benzodiazepine overdose initially. I do think the hypertensive, the tachycardia , the delirium is all significant for probable benzodiazepine withdrawal. I think there is concomitant COPD exacerbation. Her COPD exacerbation is stabilizing out, but she still requires significant amounts of anti-delirium medication as well as benzodiazepines to control her delirium, on top of a continuous precedex infusion. I think given how refractory her delirium is, this delirium is still life-threatening, as if left untreated, she would likely deteriorate again from a pulmonary stand point. Thus, she remains critically ill at this time and is not on pathway. Active problems: Acute hypoxic and hypercarbic respiratory failure Acute severe agitated delirium E.Coli UTI. COPD exacerbation Plan: --Valium 5mg po q8h scheduled --Increase Geodon to 20mg IM q12h prn for agitation, since this has apparently worked best. Haldol 5 mg IV every hour her severe agitation Precedex infusion, we will try to wean this Ativan 1 mg IV every hour as needed for agitation or withdrawal symptoms RASS goal 0 --we will consider scaling back the benzodiazepines, as I think this may be contributing to her delirium. However, she has a strong history of benzo use, and I also think that benzo withdraw could be a component, and thus I do not want to completely take her of benzos, as it may worsen our clinical condition. Continue steroids and albuterol for COPD exacerbation wean o2 by NC for goal spo2 > 90% --continue Rocephin 1gm iv q24h for E.Coli UTI. Anticipated stop date of 10/14 ( 7 day course) --daily CBC, BMP --NPO given severe agitation. will advance diet when more calm and alert. Prophy: SCDs, Pepcid, Lovenox. Dispo: remain in the ICU. This patient remains critically ill with one or more organ systems which are or may become a threat to life. I have spent in excess of 30 minutes discontinuously in the care and management of this patient. This time is exclusive of procedures, and includes, but is not limited to, evaluation of the patient, review of the medical record, discussions with family, consultants, nursing staff, or respiratory therapy, and documentation in the medical record. Palmer Gomez MD Oct 11, 2016 22:26
[2016-10-11] MEDS: ENOXAPARIN SODIUM 40 MG/0.4 ML SYRINGE SQ SCH (22:58)
[2016-10-11] MEDS: cefTRIAXone INJ 1,000 MG in SODIUM CHLORIDE 0.9% INJ 100 ML IV SCH (22:59)
[2016-10-12] VITALS (13 sets, daily range): BP systolic 125–189; BP diastolic 73–111; PULSE 74–127; RESP 19–28; TEMP 97.5–98.7; O2SAT 92–100
[2016-10-12] MEDS: methylPREDNISolone SOD SUCC 40 MG/1 ML VIAL IV PUSH SCH ×4 (00:54→22:57)
[2016-10-12] MEDS: RESP: ALBUTEROL 2.5 MG/IPRATROPIUM 0.5 MG NEB (SCH) INH ×4 (03:09→21:11)
[2016-10-12] MEDS ORDERED: ZIPRASIDONE MESYLATE 20 MG VIAL IM PRN (03:45)
[2016-10-12] MEDS: CHLORHEXIDINE GLUCONATE 2 % 1 PACK (2 CLOTHS)(taper/protocol) TOP SCH (04:00)
[2016-10-12] MEDS: LORazepam 2 MG/ML VIAL IV PUSH PRN ×5 (04:09→22:58)
[2016-10-12] MEDS: DIAZEPAM 5 MG TAB PO SCH ×3 (05:03→19:34)
[2016-10-12] MEDS: HYDROmorphone HCL PF 1 MG/ML VIAL IV PUSH PRN (05:04)
[2016-10-12 05:10] LABS: HEMATOCRIT 34.9 % (35.0-46.0); MEAN CELL VOLUME 87.3 FL (80.0-100.0); MEAN CORPUSCULAR HEMOGLOBIN 29.8 PG (27.0-34.0); MEAN CORPUSCULAR HGB CONC 34.1 % (32.0-36.0); PLATELET COUNT 196 TH/MM3 (150-450); RED BLOOD COUNT 3.99 MIL/MM3 (4.00-5.30); REVIEW FLAG FINAL; WHITE BLOOD COUNT 11.7 TH/MM3 (4.0-11.0)
[2016-10-12 05:40] LABS: BICARBONATE 25.6 MEQ/L (21.0-32.0); POTASSIUM 3.1 MEQ/L (3.5-5.1)
[2016-10-12] MEDS: FAMOTIDINE 20 MG TAB PO SCH ×2 (08:46→19:34)
[2016-10-12] MEDS: LACTULOSE SYRUP 20 GM/30 ML CUP PO SCH (08:48)
[2016-10-12] MEDS: INSULIN NovoLIN REGULAR SUPPLEMENTAL SCALE SQ SCH ×3 (12:00→22:58)
[2016-10-12] MEDS: LABETALOL HCL 100 MG/20 ML VIAL IV PUSH PRN ×2 (13:51→18:34)
[2016-10-12] MEDS ORDERED: POTASSIUM CHLORIDE 20 MEQ CONTROLLED RELEASE TAB PO ONE (14:00)
[2016-10-12] MEDS: hydrALAZINE HCL 20 MG/ML VIAL IV PUSH PRN (16:09)
--- NOTE | 2016-10-12 18:36 | HHI.CCPN ---
Subjective Remarks/Hospital Course Hospital Course: This is a 51-year-old female with a history of COPD and benzodiazepine use was brought to the emergency department by EMS for weakness and altered mental status. She reportedly took extra clonazepam because of her anxiety she was initially admitted for possible benzodiazepine overdose. Overnight, she went into worsening respiratory distress and was placed on BiPAP. She remained hypoxic throughout the night and this morning despite BiPAP. This morning, she is slightly improved on her hypoxia, but remains on high BiPAP settings. In addition, she is much more agitated this morning, wanting to leave AMA, trying to pull the BiPAP mask off. With the BiPAP is off, her SPO2 is in the 70s. Critical-care medicine is consulted to evaluate her agitated delirium and hypoxemia. When I arrived to evaluate the patient at bedside, and she was restrained, agitated, SPO2 100% on BiPAP. His difficulty to complete history from the patient given her agitated delirium. When I evaluated the patient, she was restrained and on BiPAP. I evaluated the patient in approximately 1:20 PM. I immediately and actually plan with the nurse to start Precedex and to get control of her severe agitation, and at the earliest possible time to remove the restraints. We made a plan that the restraints were to be removed by 2 PM. Subjective: 10/10: continues to be severely agitated. haldol and ativan on top of scheduled valium not adequate. hypoxia is resolving, though. now on NC o2. UTI with e- coli sensitive to rocephin. 10/11: acute delirium persists. amanda added yesterday with some improvement in RASS score, but still significantly CAM+. 10/12: Patient alert and oriented x 3 , responding appropriately. Patient continues on O2 3 L nasal cannula. Objective Vital Signs Date Time Temp Pulse Resp B/P Pulse Ox O2 Delivery O2 Flow Rate FiO2 10/12/16 16:00 98.4 102 20 189/111 97 10/12/16 16:00 Room Air 10/12/16 08:00 2.00 10/10/16 16:00 50 Intake and Output 10/11/16 10/11/16 10/12/16 08:00 16:00 00:00 Intake Total 211 ml 480 ml 965 ml Output Total 1100 ml 850 ml 500 ml Balance -889 ml -370 ml 465 ml Result Diagram: 10/12/1644010/12/16440 Objective Remarks GENERAL: Middle-aged female, sitting in bed, severely agitated HEENT:, atraumatic. pupils equally round and reactive. NECK: Trachea is midline. JVD is unable to be assessed secondary to body habitus. on NC o2. CHEST: much less tachypneic. scant expiratory wheezing. CARDIOVASCULAR: Tachycardic rate, regular rhythm. Hypertensive. No appreciable murmurs. ABDOMEN: Obese, soft, nontender, nondistended. No guarding. MUSCULOSKELETAL: 1+ peripheral edema. Distal pulses 2+ NEUROLOGICAL: RASS +1. Follows commands. Severely agitated. Vascular Central Line Catheter: No A/P Assessment and Plan Assessment: This is a 51-year-old female with history of benzodiazepine use and COPD who presents with a COPD exacerbation as well as a suspected benzodiazepine overdose initially. Now with resolution. Active problems: Acute hypoxic and hypercarbic respiratory failure Acute severe agitated delirium E.Coli UTI. COPD exacerbation Plan: --Valium 5mg po q8h scheduled -- Geodon to 20mg IM q12h prn for agitation, since this has apparently worked best. Haldol 5 mg IV every hour her severe agitation Precedex infusion discontinued this a.m. Ativan 1 mg IV every hour as needed for agitation or withdrawal symptoms RASS goal 0 --we will consider scaling back the benzodiazepines, as I think this may be contributing to her delirium. However, she has a strong history of benzo use, and I also think that benzo withdraw could be a component, and thus I do not want to completely take her of benzos, as it may worsen our clinical condition. Continue steroids and albuterol for COPD exacerbation wean o2 by MS for goal spo2 > 90% --continue Rocephin 1gm iv q24h for E.Coli UTI. Anticipated stop date of 10/14 ( 7 day course) --daily CBC, BMP --Poor appetite, Boost supplementation Prophy: SCDs, Pepcid, Lovenox. Dispo: remain in the ICU. Level 2 Physician Joelle Leigh MD Oct 12, 2016 18:36
[2016-10-12] MEDS: ENOXAPARIN SODIUM 40 MG/0.4 ML SYRINGE SQ SCH (19:34)
[2016-10-12] MEDS: cefTRIAXone INJ 1,000 MG in SODIUM CHLORIDE 0.9% INJ 100 ML IV SCH (19:34)
[2016-10-13] VITALS (13 sets, daily range): BP systolic 114–182; BP diastolic 67–117; PULSE 77–132; RESP 13–25; TEMP 98.2–98.8; O2SAT 95–100
[2016-10-13] MEDS: HALOPERIDOL LACTATE 5 MG/ML AMP IV PRN ×2 (00:26→21:22)
[2016-10-13] MEDS: LORazepam 2 MG/ML VIAL IV PUSH PRN (00:26)
[2016-10-13] MEDS: LABETALOL HCL 100 MG/20 ML VIAL IV PUSH PRN (01:35)
[2016-10-13] MEDS: RESP: ALBUTEROL 2.5 MG/IPRATROPIUM 0.5 MG NEB (SCH) INH ×2 (03:43→09:08)
[2016-10-13] MEDS: CHLORHEXIDINE GLUCONATE 2 % 1 PACK (2 CLOTHS)(taper/protocol) TOP SCH (04:00)
[2016-10-13] MEDS: DEXMEDETOMIDINE INJ 1,000 MCG in SODIUM CHLOR 0.9% 250 ML INJ 240 ML IV SCH (04:20)
[2016-10-13] MEDS: DIAZEPAM 5 MG TAB PO SCH ×3 (05:18→20:44)
[2016-10-13 05:30] LABS: HEMATOCRIT 33.2 % (35.0-46.0); MEAN CORPUSCULAR HEMOGLOBIN 29.7 PG (27.0-34.0); MEAN CORPUSCULAR HGB CONC 34.1 % (32.0-36.0); PLATELET COUNT 202 TH/MM3 (150-450); RED BLOOD COUNT 3.82 MIL/MM3 (4.00-5.30); RED CELL DISTRIBUTION WIDTH 14.7 % (11.6-17.2); REVIEW FLAG FINAL; WHITE BLOOD COUNT 11.7 TH/MM3 (4.0-11.0)
[2016-10-13] MEDS: INSULIN NovoLIN REGULAR SUPPLEMENTAL SCALE SQ SCH ×3 (05:31→17:50)
[2016-10-13 05:55] LABS: BICARBONATE 25.9 MEQ/L (21.0-32.0); POTASSIUM 3.7 MEQ/L (3.5-5.1)
[2016-10-13] MEDS: hydrALAZINE HCL 20 MG/ML VIAL IV PUSH PRN ×2 (06:59→21:06)
[2016-10-13] MEDS: FAMOTIDINE 20 MG TAB PO SCH (10:00)
[2016-10-13] MEDS: methylPREDNISolone SOD SUCC 40 MG/1 ML VIAL IV PUSH SCH ×2 (10:00→17:50)
[2016-10-13] MEDS: LACTULOSE SYRUP 20 GM/30 ML CUP PO SCH (10:00)
--- NOTE | 2016-10-13 14:18 | EKG ---
Date Performed: 10/12/2016 Time Performed: 18:57:16 PTAGE: 51 years EKG: SINUS TACHYCARDIA ABNORMAL RHYTHM ECG PREVIOUS TRACING : 10/11/2016 06.24 Since previous tracing, no significant change noted DOCTOR: Mo Brothers Interpretating Date/Time 10/13/2016 14:11:44
--- NOTE | 2016-10-13 15:18 | HHI.PR ---
Subjective Remarks Follow up for Alcohol, benzo abuse, respiratory failure. Ms. Viramontes is currently doing well. Very cooperative, pleasant. Denies any CP, SOB, fever, chills. Inquires about going home and also getting out of the ICU. Objective Vitals Vital Signs Date Time Temp Pulse Resp B/P Pulse Ox O2 Delivery O2 Flow Rate FiO2 10/13/16 14:00 89 10/13/16 12:00 103 10/13/16 10:00 78 10/13/16 09:08 98 Nasal Cannula 21 10/13/16 08:00 77 10/13/16 08:00 98.8 80 13 124/71 99 10/13/16 08:00 99 Room Air 10/13/16 06:00 77 10/13/16 04:00 Room Air 10/13/16 04:00 98.8 88 22 152/67 100 10/13/16 04:00 88 10/13/16 02:00 90 10/13/16 00:00 100 10/13/16 00:00 100 20 169/101 98 10/13/16 00:00 Nasal Cannula 2.00 10/12/16 22:00 106 10/12/16 21:12 96 Nasal Cannula 2.00 10/12/16 20:00 Nasal Cannula 2.00 10/12/16 20:00 107 10/12/16 20:00 98.7 107 28 147/110 95 10/12/16 20:00 Nasal Cannula 2.00 10/12/16 18:00 127 10/12/16 16:00 98.4 102 20 189/111 97 10/12/16 16:00 97 Room Air 10/12/16 16:00 116 I/O 10/12/16 10/12/16 10/12/16 10/13/16 10/13/16 10/13/16 07:00 15:00 23:00 07:00 15:00 23:00 Intake Total 600 ml 500 ml 100 ml 88 ml Output Total 600 ml 400 ml 600 ml 525 ml Balance 0 ml 100 ml -500 ml -437 ml Intake Oral 600 ml 500 ml IV Total 100 ml 88 ml Output Urine Total 600 ml 400 ml 600 ml 525 ml # Bowel Movements 4 1 1 Result Diagram: 10/13/16 0455 10/13/16 0455 Imaging Last Impressions Knee X-Ray 10/08/16 0000 Signed Impressions: Service Date/Time: October 07:49 - CONCLUSION: Unremarkable examination of the right knee except there may be a small effusion present. Zechariah Marlow MD Chest X-Ray 10/08/16 0000 Signed Impressions: Service Date/Time: October 23:39 - CONCLUSION: The lungs are clear. Ham Irizarry MD Head CT 10/07/162010 Signed Impressions: Service Date/Time: Friday, October 07, 2016 20:30 - CONCLUSION: No acute intracranial disease. Thomas Robertson MD Objective Remarks GENERAL: Alert, NAD. SKIN: Warm and dry. HEAD: Normocephalic. EYES: No scleral icterus. No injection or drainage. NECK: Supple, trachea midline. No JVD or lymphadenopathy. CARDIOVASCULAR: Tachycardic, and regular rhythm without murmurs, gallops, or rubs. RESPIRATORY: Breath sounds equal bilaterally. No accessory muscle use. GASTROINTESTINAL: Abdomen soft, non-tender, nondistended. MUSCULOSKELETAL: No cyanosis, or edema. BACK: Nontender without obvious deformity. No CVA tenderness. Procedures None. A/P Assessment and Plan This is a 51-year-old female with history of benzodiazepine use and COPD who presents with a COPD exacerbation as well as a suspected benzodiazepine overdose initially. Now with resolution. She is hemodynamically stable with tachycardia. Patient reports that she always has tachycardia. - Acute hypoxic and hypercarbic respiratory failure - COPD - Continue Solu-medrol 40mg Q8hrs. - Breathing tx, Supplemental O2 PRN. - Acute delirium - resolved. - Continue Geodon 20mg IM Q12hrs PRN for acute agitation - Continue Seroquel and Celexa - Diazepam 5mg Q8hrs - Clonazepam 2mg PO TID - We can probably reduce or d/c Diazepam. - E. Coli UTI - Continue Ceftriaxone 1g Qday. - Sinus tachycardia - Heart rate in the 130s. - Will initiate IV fluid, psychiatric medications. - If no improvement by 10/14/2016, we will consider metoprolol to control heart rate below 100. Full code. Lovenox. Josiah Randolph DO Oct 13, 2016 15:18
[2016-10-13] MEDS: SODIUM CHLOR 0.9% 1000 ML INJ 1,000 ML IV SCH ×2 (15:30→20:45)
[2016-10-13] MEDS: clonazePAM 1 MG TAB PO SCH (17:50)
[2016-10-13] MEDS: CITALOPRAM HYDROBROMIDE 20 MG TAB PO SCH (17:52)
[2016-10-13] MEDS: cefTRIAXone INJ 1,000 MG in SODIUM CHLORIDE 0.9% INJ 100 ML IV SCH (20:44)
[2016-10-13] MEDS ORDERED: QUEtiapine FUMARATE 300 MG TAB PO SCH (21:00)
[2016-10-14] VITALS (7 sets, daily range): BP systolic 131–159; BP diastolic 76–78; PULSE 99–121; RESP 16–21; TEMP 97.3–98.5; O2SAT 94–100
[2016-10-14] MEDS: ENOXAPARIN SODIUM 40 MG/0.4 ML SYRINGE SQ SCH (00:25)
[2016-10-14] MEDS: methylPREDNISolone SOD SUCC 40 MG/1 ML VIAL IV PUSH SCH ×2 (00:25→08:03)
[2016-10-14] MEDS: INSULIN NovoLIN REGULAR SUPPLEMENTAL SCALE SQ SCH ×3 (00:28→11:33)
[2016-10-14] MEDS: SODIUM CHLOR 0.9% 1000 ML INJ 1,000 ML IV SCH ×2 (04:14→10:58)
[2016-10-14 05:10] LABS: HEMATOCRIT 38.4 % (35.0-46.0); MEAN CELL VOLUME 88.2 FL (80.0-100.0); MEAN CORPUSCULAR HEMOGLOBIN 29.9 PG (27.0-34.0); MEAN CORPUSCULAR HGB CONC 33.9 % (32.0-36.0); PLATELET COUNT 256 TH/MM3 (150-450); RED BLOOD COUNT 4.35 MIL/MM3 (4.00-5.30); RED CELL DISTRIBUTION WIDTH 14.9 % (11.6-17.2); REVIEW FLAG FINAL; WHITE BLOOD COUNT 13.9 TH/MM3 (4.0-11.0)
[2016-10-14 05:35] LABS: BICARBONATE 22.7 MEQ/L (21.0-32.0); POTASSIUM 3.7 MEQ/L (3.5-5.1)
[2016-10-14] MEDS: DIAZEPAM 5 MG TAB PO SCH (07:16)
[2016-10-14] MEDS: clonazePAM 1 MG TAB PO SCH ×2 (08:03→12:22)
[2016-10-14] MEDS: LACTULOSE SYRUP 20 GM/30 ML CUP PO SCH (08:03)
[2016-10-14] MEDS: CITALOPRAM HYDROBROMIDE 20 MG TAB PO SCH (08:03)
[2016-10-14] MEDS: LABETALOL HCL 100 MG/20 ML VIAL IV PUSH PRN (08:10)
[2016-10-14] MEDS ORDERED: PANTOPRAZOLE SOD 20 MG DELAYED RELEASE TAB PO SCH (09:00)
[2016-10-14] MEDS ORDERED: LISINOPRIL 20 MG TAB PO SCH (11:30)
[2016-10-14] MEDS: hydrALAZINE HCL 20 MG/ML VIAL IV PUSH PRN (11:30)
[2016-10-14] MEDS ORDERED: AMLO5TAB2 PO (12:09)
[2016-10-14] MEDS ORDERED: SERO300T PO (12:09)
[2016-10-14] MEDS ORDERED: OMEP20TA PO (12:09)
[2016-10-14] MEDS ORDERED: LISI-515 PO (12:09)
[2016-10-14] MEDS ORDERED: CLON2TAB PO (12:09)
[2016-10-14] MEDS ORDERED: CARV6.252 PO (12:09)
--- NOTE | 2016-10-14 12:12 | HHI.DS ---
Discharge Summary Admission Date Oct 08, 2016 at 12:48 am Discharge Date: Oct 14, 2016 Admitting Diagnosis Weakness, altered mental status, respiratory failure. (1) Delirium due to another medical condition, acute, mixed level of activity ICD Code: F05 Diagnosis: Principal (2) Urinary tract infection ICD Code: N39.0 Diagnosis: Principal (3) Substance abuse ICD Code: F19.10 Procedures None. Brief History - From Admission 51-year-old female with a history of COPD is brought to the emergency department by EMS for evaluation of weakness. The patient states that she got into an argument with her son who was asking her for money and he called EMS. States that she was feeling weak in her knees worse on the right than the left. Denies any falls, denies any head trauma or loss of consciousness. Denies any specific injury or trauma to her knees. States she has had problems with her knees for years. She denies any fever, chills, nausea, vomiting, lightheadedness, dizziness, headache, chest pain, shortness breath, abdominal pain, numbness or tingling. She admits to drinking alcohol daily to try to control her chronic back pain, states that she used to take Suboxone but does not take this anymore. She also admits to taking clonazepam for anxiety, states she took four of 2 mg tablets of clonazepam today, 2 this morning and 2 this afternoon. She denies any suicidal ideations or thoughts of hurting herself. Denies any ingestion of pills or substances in an attempt to harm herself. No other complaints. She also complaints of suprapubic pain, dysuria, chills. Denies fevers. Says she also vomited 2x NBNB, and felt nauseated. CBC/BMP: 10/14/16 0400 10/14/16 0400 Significant Findings Laboratory Tests Test 10/12/16 10/13/16 10/14/16 04:41 04:55 04:00 White Blood Count 11.7 TH/MM3 11.7 TH/MM3 13.9 TH/MM3 (4.0-11.0) (4.0-11.0) (4.0-11.0) Red Blood Count 3.99 MIL/MM3 3.82 MIL/MM3 (4.00-5.30) (4.00-5.30) Hematocrit 34.9 % 33.2 % (35.0-46.0) (35.0-46.0) Potassium Level 3.1 MEQ/L (3.5-5.1) Random Glucose 128 MG/DL 163 MG/DL 124 MG/DL (74-106) (74-106) (74-106) Hemoglobin 11.3 GM/DL (11.6-15.3) Calcium Level 8.4 MG/DL (8.5-10.1) Estimat Glomerular Filtration 88 ML/MIN (>89) Rate Imaging Last Impressions Knee X-Ray 10/08/16 0000 Signed Impressions: Service Date/Time: October 07:49 - CONCLUSION: Unremarkable examination of the right knee except there may be a small effusion present. Zechariah Marlow MD Chest X-Ray 10/08/16 Signed Impressions: Service Date/Time: October 23:39 - CONCLUSION: The lungs are clear. Ham Irizarry MD Head CT 10/07/162010 Signed Impressions: Service Date/Time: Friday, October 07, 2016 20:30 - CONCLUSION: No acute intracranial disease. Thomas Robertson MD PE at Discharge GENERAL: Alert, NAD. SKIN: Warm and dry. HEAD: Normocephalic. EYES: No scleral icterus. No injection or drainage. NECK: Supple, trachea midline. No JVD or lymphadenopathy. CARDIOVASCULAR: Tachycardic, and regular rhythm without murmurs, gallops, or rubs. RESPIRATORY: Breath sounds equal bilaterally. No accessory muscle use. GASTROINTESTINAL: Abdomen soft, non-tender, nondistended. MUSCULOSKELETAL: No cyanosis, or edema. BACK: Nontender without obvious deformity. No CVA tenderness. Pt update on day of discharge Ms. Viramontes is doing well. No acute concerns. Denies any CP, SOB, fever, chills. Her BP is elevated but asymptomatic. We will resume her lisinopril and adjust other medications. She is not able to see PCP for at least 2 weeks. We will give her medications for 30 days except clonazepam for 2 weeks. Hospital Course This is a 51-year-old female with history of benzodiazepine use and COPD who presents with a COPD exacerbation as well as a suspected benzodiazepine overdose initially. Now with resolution. She is hemodynamically stable with tachycardia. Patient reports that she always has tachycardia. - Acute hypoxic and hypercarbic respiratory failure - COPD - Continue Solu-medrol 40mg Q8hrs while in the hospital. - Breathing tx, Supplemental O2 PRN. - Acute delirium - resolved. - Continue Geodon 20mg IM Q12hrs PRN for acute agitation - Continue Seroquel and Celexa - Diazepam 5mg Q8hrs - Clonazepam 2mg PO TID - We can probably reduce or d/c Diazepam. - E. Coli UTI - Continue Ceftriaxone 1g Qday. - Sinus tachycardia - Heart rate in the 130s. - Will initiate IV fluid, psychiatric medications. - If no improvement by 10/14/2016, we will consider beta blockerto control heart rate below 100. - Hypertension - Patient normally takes Lisinopril 40mg BID at home. - Will discharge patient home on Lisinopril 40mg Qday, Amlodipine 5mg Qday and Carvedilol 6.25mg Qday. - Patient is strongly advised to obtain a PCP who can monitor and adjust BP and other meds. Pt Condition on Discharge: Good Discharge Disposition: Discharge Home Discharge Time: > 30 minutes Discharge Instructions DIET: Follow Instructions for: As Tolerated, No Restrictions Activities you can perform: Regular-No Restrictions Follow up Referrals: PCP Follow-up - 1 Week New Medications: Amlodipine (Amlodipine) 5 Mg Tab 5 MG PO DAILY Blood Pressure Management #30 Ref 0 TAB Carvedilol (Carvedilol) 6.25 Mg Tab 6.25 MG PO BID #60 Ref 0 TAB Lisinopril (Lisinopril) 20 Mg Tab 40 MG PO DAILY Blood Pressure Management #30 TAB Changed Medications: Clonazepam (Clonazepam) 2 Mg Tab 2 MG PO TID PRN #45 Ref 0 TAB (Changed from: 90) Continued Medications: Omeprazole (Omeprazole) 20 Mg Tab 20 MG PO DAILY GERD #30 Ref 0 TAB (This prescription has been renewed) Quetiapine (Seroquel) 300 Mg Tab 300 MG PO HS Anxiety and/or Insomnia #30 Ref 0 TAB (This prescription has been renewed) Josiah Randolph DO Oct 14, 2016 12:12
== END 2016-10-14 12:40 | disposition home or self-care (01) | DRG 871 ==
LOC: NEPC 19:38 → NEDA 10-08 00:48 → NEDH 10-08 05:27 → HIMN 10-09 00:05
PROVIDERS: ADMIT Hospitalist; ATTEND Hospitalist
PROC: 5A09457 Assistance with Respiratory Ventilation, 24-96 Consecutive Hours, Continuous Positive Airway Pressure (ICD-10-PCS; principal; 2016-10-09)
DX: A41.9 Sepsis, unspecified organism (principal); G92 Toxic encephalopathy; J96.01 Acute respiratory failure with hypoxia; J96.02 Acute respiratory failure with hypercapnia; E87.2 Acidosis; N39.0 Urinary tract infection, site not specified; J44.1 Chronic obstructive pulmonary disease with (acute) exacerbation; F13.231 Sedative, hypnotic or anxiolytic dependence with withdrawal delirium; B96.20 Unspecified Escherichia coli [E. coli] as the cause of diseases classified elsewhere; T42.4X1A Poisoning by benzodiazepines, accidental (unintentional), initial encounter; R00.0 Tachycardia, unspecified; I10 Essential (primary) hypertension; G89.29 Other chronic pain; F41.0 Panic disorder [episodic paroxysmal anxiety]; M25.562 Pain in left knee; M25.561 Pain in right knee; F17.210 Nicotine dependence, cigarettes, uncomplicated; R31.9 Hematuria, unspecified; F10.10 Alcohol abuse, uncomplicated
CPT/HCPCS: 36600; 70450; 71010; 73564; 76937; 80048; 80053; 80307; 80320; 80329; 81001; 82140; 82805; 82948; 83605; 83735; 84100; 85025; 85027; 87077; 87086; 87186; 87641; 93005; 94002; 94640; 94664; 94667; 96361; 96365; 96366; 96372; 96375; C9399; G0480; J0360; J0696; J1170; J1630; J1650; J2060; J2310; J2405; J2920; J3486; J7030; J7050